=== PATIENT | female | born 1970 | race Hispanic/Latino ===

== ENCOUNTER 2025-01-15 16:47 | Inpatient (IN) | payer OTHER ==
[~2025-01-15] VITALS: Ht 154.9 cm; Wt 118.5 kg
[2025-01-15] MEDS ORDERED: VANCOMYCIN PROTOCOL PER PHARMACY IV SCH (17:30)
[2025-01-15] MEDS: 0.9%NACL 1000ML 1,000 ML IV SCH ×2 (17:32→21:22)
[2025-01-15 17:43] LABS: IMMATURE GRANULOCYTE ABSOLUTE 0.10 K/uL (0-1); NUCLEATED RED BLOOD CELLS 0.0 % (0.0-0.19); PLATELET COUNT (AUTO) 293 K/uL (130-400); RED BLOOD CELL COUNT(AUTO) 4.29 MIL/uL (4.00-5.50); RED CELL DISTRIBUTION WIDTH 11.9 % (11.0-15.5); WHITE BLOOD COUNT (AUTO) 10.2 K/uL (4.8-10.8)
[2025-01-15 17:50] LABS: CREATININE 0.9 mg/dL (0.5-1.0); GLOMERULAR FILTR. RATE CALC 77.0 mL/min (>90); GLUCOSE,RANDOM 366.0 mg/dL (70-105); SODIUM SERUM 132.0 mmol/L (136-145); UREA NITROGEN, BLOOD 22.0 mg/dL (7-18)
[2025-01-15 17:54] LABS: APPEARANCE,URINE CLEAR (CLEAR); GLUCOSE, URINE (UA) >=1000 mg/dL (NEGATIVE); LEUKOCYTE ESTERASE ,URINE NEGATIVE Leu/uL (NEGATIVE); NITRATE,URINE NEGATIVE (NEGATIVE); OCCULT BLOOD,URINE NEGATIVE (NEGATIVE)
[2025-01-15 18:00] LABS: ADD UA MICROSCOPIC YES
[2025-01-15 18:05] LABS: SQUAMOUS EPITHELIAL CELL,UR RARE /HPF (0-2); UNCLASSIFIED CRYSTAL 7 /HPF (None Seen)
[2025-01-15] MEDS: VANCOMYCIN 1.25 GM/250 ML BAG 250 ML IV SCH (18:21)
--- NOTE | 2025-01-15 19:04 | HMCIMG ---
EXAM: Chest radiograph 1 view HISTORY: Sepsis COMPARISON: None FINDINGS: No pulmonary consolidations. No pleural effusion or pneumothorax. Normal cardiomediastinal silhouette and pulmonary vasculature. No suspicious osseous lesions. IMPRESSION: No acute cardiopulmonary disease. /[place]
--- NOTE | 2025-01-15 20:57 | HP ---
[facility] HISTORY AND PHYSICAL Date of Service: Jan 15, 2025 Time of Service: 20:56 PCP: Familia Dai HISTORY OF PRESENT ILLNESS: This is a 54-year-old female with past medical history of diabetes, hypertension, hyperlipidemia and morbid obesity who presents to the ER for complaints of left lower extremity cellulitis which started over a month the patient is taking Bactrim x 12 days but no improvement so patient is being referred to the ED for evaluation.Patient states her left leg just get swollen, inflamed and painful and has 2 blisters that are still intact.Patient denies trauma,insect bites and no fall injury.Patient reports she was seen by her PCP and was advised to come for a possible IV antibiotic.Patient reports 4/10 pain level on the site.Patient reports having fever and chills today but did not check temperature. Latest vital signs temperature 99.7, heart rate 116, blood pressure 144/63 saturation 95% on room air. WBC 10, neutrophils 87, hemoglobin 13, hematocrit 41, platelet count 293. Sodium 132, chloride 98, BUN 22, glucose 366 lactic acid 2.2-1.4 troponin 27 BNP 10. Urinalysis remarkable for glucose more than 1000, ketones five, urine RBC 6-10, urine WBC 2-5. Chest x-ray result is unremarkable. Venous Doppler of the left lower extremity result revealed no DVT . While in the ER patient received 1 L NS bolus, vancomycin IV and cefepime IV. We will admit patient for further medical management. REVIEW OF SYSTEMS CONSTITUTIONAL: Denies fevers, chills, or night sweats. No unintentional weight loss reported. NEUROLOGICAL: Denies headache, amaurosis fugax, motor weakness, sensory deficit, vertigo/spinning sensation, gait abnormalities, or tremors. ENT: No hearing loss, otalgia, otorrhea, rhinitis, rhinorrhea, hoarseness, or sore throat. CARDIOVASCULAR: Denies any exertional angina, dyspnea on exertion, orthopnea, paroxysmal nocturnal dyspnea, palpitations, life-threatening arrhythmias, c laudication. PULMONARY: Denies any shortness of breath, cough, phlegm/sputum, hemoptysis, pleuritic chest pain. SLEEP: Denies morning headaches, daytime somnolence or napping. Denies difficulty falling asleep, staying asleep, waking from sleep. Denies knowledge of snoring. GASTROINTESTINAL: Morbidly obese Denies any type of dysphagia to either liquids or solids. Denies nausea, vomiting, pyrosis, early satiety, abdominal pain, diarrhea, constipation, or changes in stool consistency or caliber. Denies coffee-ground emesis, hematemesis, hematochezia, or melanotic stools. GENITOURINARY: Denies frequency, urgency, nocturia, hematuria or incontinence (Storage/Irritative symptoms.) Low urinary stream, straining to void, urinary intermittency or hesitancy, splitting of the voiding stream, terminal dribbling. ENDOCRINOLOGIC: Denies polyuria, polydipsia, polyphagia or heat/cold in tolerances. HEMATOLOGIC: Denies thrombophilia/previous clots, or coagulopathy/bleeding disorders. ONCOLOGIC: Denies personal history of malignancy. DERMATOLOGIC: Denies rashes or pruritus. PSYCHIATRIC: Denies any suicidal or homicidal ideation. Denies hallucinations. PAST MEDICAL HISTORY: [Diabetes, hypertension, hyperlipidemia and morbid obesity ] PAST SURGICAL HISTORY: [ Patient denies ] PAST SOCIAL HISTORY: [ Patient denies alcohol tobacco and recreational drug use ] FAMILY HISTORY: [ Noncontributory ] Coded Allergies: No Known Allergies (Unverified Allergy, Unknown, 01/15/25) PHYSICAL EXAM GENERAL APPEARANCE: The patient is awake, alert, and oriented, in no acute cardiopulmonary distress. NEUROLOGICAL: Cranial nerves II-XII grossly intact. Motor is 5/5 in bilateral upper and lower extremities proximal to distal. No sensory deficits. HEENT: Face is symmetric. Pupils are equal and reactive. Extraocular movements are intact. NECK: Supple. No JVD. No thyromegaly. No submental, submandibular, pre- /postauricular, occipital or supraclavicular lymphadenopathy. CHEST: Normal chest expansion. No Telemetry. LUNGS: Absence of any rales, rhonchi or any wheezing. CARDIOVASCULAR: Regular. S1 and S2 normal. No appreciable rubs, murmurs or gallops. ABDOMEN: Soft, nontender, and nondistended. There is no rebound, voluntary guarding, or rigidity. : Deferred. No [place]. EXTREMITIES: Left leg swollen, red and tender to touch SKIN: To blisters intact to left lower leg Vital Sign (Last 24 Hours) 01/15/25 18:44 Temp 98.1 Pulse 106 Resp 16 B/P (MAP) 149/61 Pulse Ox 98 O2 Delivery Room Air* O2 Flow Rate 0 FiO2 21 LABS: Laboratory: Test 01/15/25 17:04 01/15/25 14:56 Range/Units Urine Color LIGHT-YELLOW YELLOW Urine Appearance CLEAR CLEAR Urine pH 5.5 5.0-8.0 Urine Specific [place] 1.025 1.001-1.031 Urine Protein NEGATIVE NEGATIVE mg/dL Urine Glucose (UA) >=1000 H NEGATIVE mg/dL Urine Ketones 5 H NEGATIVE mg/dL Urine Occult Blood NEGATIVE NEGATIVE Urine Nitrate NEGATIVE NEGATIVE Urine Bilirubin NEGATIVE NEGATIVE mg/dL Urine Urobilinogen 0.2 0.2-1.0 mg/dL Urine Leukocyte Esterase NEGATIVE NEGATIVE Elizabeth/uL Urine RBC 6-10 H 0-1 /HPF Urine WBC 2-5 H 0-1 /HPF Urine Squamous Epithelial Cells RARE 0-2 /HPF Urine Other Crystals (Auto) 7 None Seen /HPF Urine Bacteria None None Seen /HPF White Blood Count 10.2 4.8-10.8 K/uL Red Blood Count 4.29 4.00-5.50 MIL/uL Hemoglobin 13.9 12.0-16.0 g/dL Hematocrit 41.2 36-48 % Mean Corpuscular Volume 96.0 79-99 fL Mean Corpuscular Hemoglobin 32.4 27.0-33.0 pg Mean Corpuscular Hemoglobin Concent 33.7 32.0-36.0 g/dL Red Cell Distribution Width 11.9 11.0-15.5 % Platelet Count 293 130-400 K/uL Mean Platelet Volume 11.5 H 7.5-10.5 fL Immature Granulocyte % (Auto) 1.0 0-1 % Neutrophils (%) (Auto) 87.6 H 40.0-77.0 % Lymphocytes (%) (Auto) 7.7 L 21.0-51.0 % Monocytes (%) (Auto) 3.3 3.0-13.0 % Eosinophils (%) (Auto) 0.1 0.0-8.0 % Basophils (%) (Auto) 0.3 0.0-5.0 % Neutrophils # (Auto) 8.9 H 1.8-7.7 K/uL Lymphocytes # (Auto) 0.8 L 1.0-4.8 K/uL Monocytes # (Auto) 0.3 0.1-1.0 K/uL Eosinophils # (Auto) 0.01 0.00-0.70 K/uL Basophils # (Auto) 0.03 0.00-0.20 K/uL Absolute Immature Granulocyte (auto 0.10 0-1 K/uL Nucleated Red Blood Cells 0.0 0.0-0.19 % White Cell Morphology Comment See comments Sodium Level 132 L 136-145 mmol/L Potassium Level 4.8 3.5-5.1 mmol/L Chloride Level 98 L 101-111 mmol/L Carbon Dioxide Level 22 21-32 mmol/L Blood Urea Nitrogen 22 H 7-18 mg/dL Creatinine 0.9 0.5-1.0 mg/dL Glomerular Filtration Rate Calc 77 >90 mL/min Random Glucose 366 H 70-105 mg/dL Lactic Acid Level 2.2 0.8-2.5 mmol/L Total Calcium 8.8 8.5-10.1 mg/dL Troponin I High Sensitivity 27 4-50 ng/L B-Type Natriuretic Peptide 10 0-100 pg/mL Current Medications Medications (Trade) Dose Ordered Sig/Chadd Route PRN Reason Start Time Stop Time Status Last Admin Dose Admin Cefepime HCl (MAXipime 1 GM vial) 1 gm Q12H IVPB 01/15/25 17:30 01/25/25 17:29 01/15/25 17:32 1 GM Sodium Chloride 1,000 ml @ 0 mls/hr ONCE IV 01/15/25 17:30 01/16/25 17:29 01/15/25 17:32 999 MLS/HR Vancomycin HCl 250 ml @ 125 mls/hr ONCE IV 01/15/25 18:00 01/15/25 22:00 01/15/25 18:21 125 MLS/HR Vancomycin HCl 250 ml @ 125 mls/hr Q8H6 IV 01/15/25 23:30 01/25/25 23:29 Vancomycin HCl (Vancomycin Protocol) 1 each AD IV 01/15/25 17:30 01/29/25 17:29 DIAGNOSTICS / RADIOLOGY: [ ] ASSESSMENT: Left lower extremity cellulitis POA Morbid obesity POA Hypertension POA Hyperlipidemia POA Uncontrolled diabetes POA Hyponatremia due to hyperglycemia POA PLAN: We will admit patient in medical surgical We will start on consistent carb diet We will start NS @ 75 ml / hr x2 bags and re evaluate We will continue vancomycin and cefepime IV for broad-spectrum coverage We will start famotidine 20 mg p.o. b.i.d. for GI prophylaxis We will replace electrolytes as needed per protocol We will start on insulin sliding Q4H with hypoglycemia protocol We will add prn medication for fever,pain,cough , nausea and vomiting We will reconcile home meds once medlist available We will recheck BMP and serum ketones and follow-up result We will request labs in am Further orders to follow depending on above results Case discussed with attending physician and came up with above treatment and plan of care. ADVANCED CARE PLANNING 1. Which of the following were discussed? Hospice Care - No Therapeutic options - Yes Advance Directives - No Other discussions - 2. Discussed with who? Patient 3. Voluntary nature of this service was explained to the patient? Yes 4. Amount of time spent - _22 min 5. Reviewed by Physician? (if this service was performed by NPP) Yes Patient seen and examined by me. Agree with note by TECHNICAL SPECIALIST CYTOLOGY SEE ADDITIONAL ORDERS PER CHART DISCUSSED WITH NURSING STAFF KP JEFFERSON CUSTOMER ENERGY SPECIALIST Jan 15, 2025 20:56
[2025-01-15] MEDS ORDERED: PoTASSium chl 10% ELIXIR 20MEQ 20 MEQ/15 ML UDCUP PO PRN (21:00)
[2025-01-15] MEDS ORDERED: MAGNESIUM 2GM PREMIX 50ML 50 ML IV PRN (21:00)
[2025-01-15] MEDS ORDERED: VANCOMYCIN 1G/250ML KIT 250 ML IV SCH (21:00)
[2025-01-15] MEDS ORDERED: PoTASSium chloRIDE 20MEQ ER 20 MEQ ERTAB PO PRN (21:00)
[2025-01-15] MEDS ORDERED: DEXTROSE 50%-WATER 50 ML DISP.SYRIN IV PRN (21:00)
[2025-01-15] MEDS ORDERED: GLUCAGON 1MG KIT 1 MG ML IM PRN (21:00)
--- NOTE | 2025-01-15 21:30 | ERN ---
General Chief Complaint: Cellulitis Stated Complaint: LEFT LOWER EXTREMITY CELLULITIS Time Seen by MD: 16:55 Time Seen by Midlevel: 16:55 Source: patient History of Present Illness Initial Comments 54-year-old female presenting to the ER for left lower extremity cellulitis. Patient states this started a proximally one month ago she was started on Bactrim. Per day her redness worsened she was seen by her primary care doctor who referred her to the ER for further evaluation. Today she reports developing fever and chills. Allergies: Coded Allergies: No Known Allergies (Unverified Allergy, Unknown, 01/15/25) Past Medical History Past Medical History: Diabetes-Type II, High Cholesterol, Heart Disease, Hypertension Past Surgical History: None ROS Dictation CONSTITUTIONAL: Negative except for HPI HEAD/FACE: Negative except for HPI EENT: Negative except for HPI RESPIRATORY: Negative except for HPI GASTROINTESTINAL/ABDOMINAL: Negative except for HPI GENITOURINARY: Negative except for HPI MUSCULOSKELETAL: Negative except for HPI INTEGUMENTARY: Negative except for HPI NEUROLOGICAL/PSYCH: Negative except for HPI HEMATOLOGIC/LYMPHATIC: Negative except for HPI All Systems Negative, Except as noted above. 13 point review of systems assessed and all negative except for above. Physical Exam Physical Exam Dictation Vital Signs reviewed General Appearance: Alert, oriented x 3, no acute distress, well developed, nourished. Head and Face: non-traumatic. Eyes: PERRL, pink conjunctivas, eyelid no trauma, anterior chamber with arcus senilis. Ears: Pinnas intact and no signs of trauma or erythema ear canals clear and no discharge TM no erythema Nose: No discharge, no bleeding. Oropharynx: Mouth normal, tongue pink, pharynx clear,no erythema, tonsils no exudates, no abscesses noted, mucous membrane moist Neck: Supple, non-tender, no thyromegaly, no masses, no JVD, no bruits Breast:Deferred Chest:No tenderness, no crepitus, no paradoxical movement, no retractions Lungs:Clear, well-ventilated, symmetric, no rales, no wheezing, no rhonchi, no stridor, good breath sounds bilaterally Heart: Regular rate, regular rhythm, no murmur, no gallops Vascular: no peripheral edema, Abdomen: Soft, positive bowel sounds, nondistended, no guarding, nontender, no rebound, no masses no hepatomegaly, no splenomegaly, no Landrum's sign, no hernias. Rectal: Deferred Genital: Deferred Neurological: Normal speech, motor function intact, sensory function intact Musculoskeletal: Neck nontender, full range of motion, back nontender, full range of motion, Extremities: nontender, full range of motion Skin: Erythema to the left lower extremity Lymphatic: Deferred Results Laboratory and Microbiology Lab and Micro Result Laboratory Tests Test 01/15/25 14:56 01/15/25 17:04 01/15/25 20:55 White Blood Count 10.2 K/uL (4.8-10.8) Red Blood Count 4.29 MIL/uL (4.00-5.50) Hemoglobin 13.9 g/dL (12.0-16.0) Hematocrit 41.2 % (36-48) Mean Corpuscular Volume 96.0 fL (79-99) Mean Corpuscular Hemoglobin 32.4 pg (27.0-33.0) Mean Corpuscular Hemoglobin Concent 33.7 g/dL (32.0-36.0) Red Cell Distribution Width 11.9 % (11.0-15.5) Platelet Count 293 K/uL (130-400) Mean Platelet Volume 11.5 fL (7.5-10.5) H Immature Granulocyte % (Auto) 1.0 % (0-1) Neutrophils (%) (Auto) 87.6 % (40.0-77.0) H Lymphocytes (%) (Auto) 7.7 % (21.0-51.0) L Monocytes (%) (Auto) 3.3 % (3.0-13.0) Eosinophils (%) (Auto) 0.1 % (0.0-8.0) Basophils (%) (Auto) 0.3 % (0.0-5.0) Neutrophils # (Auto) 8.9 K/uL (1.8-7.7) H Lymphocytes # (Auto) 0.8 K/uL (1.0-4.8) L Monocytes # (Auto) 0.3 K/uL (0.1-1.0) Eosinophils # (Auto) 0.01 K/uL (0.00-0.70) Basophils # (Auto) 0.03 K/uL (0.00-0.20) Absolute Immature Granulocyte (auto 0.10 K/uL (0-1) Nucleated Red Blood Cells 0.0 % (0.0-0.19) White Cell Morphology Comment See comments Sodium Level 132 mmol/L (136-145) L Potassium Level 4.8 mmol/L (3.5-5.1) Chloride Level 98 mmol/L (101-111) L Carbon Dioxide Level 22 mmol/L (21-32) Blood Urea Nitrogen 22 mg/dL (7-18) H Creatinine 0.9 mg/dL (0.5-1.0) Glomerular Filtration Rate Calc 77 mL/min (>90) Random Glucose 366 mg/dL (70-105) H Lactic Acid Level 2.2 mmol/L (0.8-2.5) 1.4 mmol/L (0.8-2.5) Total Calcium 8.8 mg/dL (8.5-10.1) Troponin I High Sensitivity 27 ng/L (4-50) B-Type Natriuretic Peptide 10 pg/mL (0-100) Urine Color LIGHT-YELLOW (YELLOW) Urine Appearance CLEAR (CLEAR) Urine pH 5.5 (5.0-8.0) Urine Specific [place] 1.025 (1.001-1.031) Urine Protein NEGATIVE mg/dL (NEGATIVE) Urine Glucose (UA) >=1000 mg/dL (NEGATIVE) H Urine Ketones 5 mg/dL (NEGATIVE) H Urine Occult Blood NEGATIVE (NEGATIVE) Urine Nitrate NEGATIVE (NEGATIVE) Urine Bilirubin NEGATIVE mg/dL (NEGATIVE) Urine Urobilinogen 0.2 mg/dL (0.2-1.0) Urine Leukocyte Esterase NEGATIVE Elizabeth/uL Urine RBC 6-10 /HPF (0-1) H Urine WBC 2-5 /HPF (0-1) H Urine Squamous Epithelial Cells RARE /HPF (0-2) Urine Other Crystals (Auto) 7 /HPF (None Seen) Urine Bacteria None /HPF (None Seen) Labs Reviewed?: Yes MDM MDM: Differential diagnosis: Cellulitis, DVT, sepsis Rationale: Tests considered and ordered secondary to shared decision making include: Previous outside records reviewed: Old ER visits. Risk of complication and/or morbidity or mortality of patient management: None Medications-Per medication reconciliation Need for hospitalization: Patient does meet criteria for hospitalization. Need for emergency major/minor surgery: No There are no social concerns with this patient. Prescription drug management Prescriptions will include symptomatic care Patient's prior external medical records from other ER visits were reviewed by me as indicated. Prior testing and results from previous visits were reviewed. Prior tests were taken into account with medical decision making and resource utilization, independent historian/historians were used to obtain complete medical history. I independently interpreted the test that were performed, results were reviewed by me and considered findings on radiology if ordered. Medical management and examination interpretation discussions were had by me with other qualified healthcare professionals as indicated for the patient's care. ED Course Orders Procedure Category Date Status Time Cbc With Differential LAB 01/15/25 Complete 17:18 Basic Metabolic Panel LAB 01/15/25 Complete 17:18 Lactic Acid LAB 01/15/25 Complete 17:18 Blood Cult LUIS 01/15/25 Logged 17:18 Troponin I High LAB 01/15/25 Complete Sensitivity 17:18 0.9%Nacl 1000ml (Ns PHA 01/15/25 In Process 1000ml) 17:30 Vancomycin Protocol PHA 01/15/25 In Process (Vancomycin Protocol 17:30 Cefepime Hcl 1 Gm PHA 01/15/25 Complete Vial (Maxipime 1 Gm Vi 17:30 B-Type Natriuretic LAB 01/15/25 Complete Peptide 17:24 Chest 1vw RAD 01/15/25 Resulted 17:24 Urinalysis Profile LAB 01/15/25 Complete 17:24 Vancomycin 1.25 PHA 01/15/25 Complete Gm/250 Ml Bag 18:00 Vancomycin 1.25 PHA 01/15/25 Complete Gm/250 Ml Bag 23:30 Vancomycin Trough LAB 01/16/25 Verified 17:00 Us Venous Doppler US 01/15/25 Taken Unilateral 19:08 Lactic Acid (Removed) LAB 01/15/25 Complete 20:43 Current Medications Medications (Trade) Dose Ordered Sig/Chadd Route PRN Reason Start Time Stop Time Status Last Admin Dose Admin Cefepime HCl (MAXipime 1 GM vial) 1 gm Q12H IVPB 01/15/25 17:30 01/15/25 21:22 DC 01/15/25 17:32 Sodium Chloride 1,000 ml @ 0 mls/hr ONCE IV 01/15/25 17:30 01/16/25 17:29 01/15/25 17:32 Vancomycin HCl 250 ml @ 125 mls/hr ONCE IV 01/15/25 18:00 01/15/25 21:19 DC 01/15/25 18:21 Vancomycin HCl (Vancomycin Protocol) 1 each AD IV 01/15/25 17:30 01/29/25 17:29 Vital Signs Date Time Temp Pulse Resp B/P (MAP) Pulse Ox O2 Delivery O2 Flow Rate FiO2 01/15/25 18:44 98.1 106 16 149/61 98 Room Air* 0 21 01/15/25 17:25 99.7 116 12 144/63 95 Room Air* 0 21 01/15/25 16:49 99.0 114 18 146/71 98 Room Air 0 DX & DISP Disposition: Discharge Departure Impression: Primary Impression: Cellulitis Additional Impression: Failure of outpatient treatment Condition: Stable Referrals: SELF,REFERRAL (PCP) I have reviewed the case, and I agree with, Diagnosis and Plan I performed the substantive portion of the visit. I have reviewed and personally made and approve the management plan that is documented in the note by myself or the MARIA ESTHER. I acknowledge for responsibility for the patient's management plan. DEUCE GARCÍA Jan 15, 2025 21:30
[2025-01-15] MEDS: FAMOTIDINE 20MG TAB PO SCH (21:31)
--- NOTE | 2025-01-15 21:31 | HMCIMG ---
EXAMINATION: Spectral Doppler Ultrasound Examination of the Left Lower Extremity Veins. CLINICAL HISTORY: Swelling. COMPARISON: None provided. TECHNIQUE: Real-time ultrasound scan of the veins of the left lower extremity with color Doppler flow, spectral waveform analysis, and compression. FINDINGS: DEEP VEINS: The common femoral, superficial femoral, and popliteal veins are echolucent and compressible. There is normal color Doppler flow throughout. The visualized calf veins appear patent. SUPERFICIAL VEINS: The greater saphenous vein is patent and compressible. SOFT TISSUES: No popliteal fossa cyst or other abnormalities. IMPRESSION: No deep venous thrombosis is evident in the left lower extremity. No superficial thrombophlebitis in the left lower extremity. /[place]
[2025-01-15 23:27] LABS: CREATININE 0.7 mg/dL (0.5-1.0); GLOMERULAR FILTR. RATE CALC 104.0 mL/min (>90); GLUCOSE,RANDOM 257.0 mg/dL (70-105); SODIUM SERUM 136.0 mmol/L (136-145); UREA NITROGEN, BLOOD 20.0 mg/dL (7-18)
[2025-01-15] MEDS ORDERED: VANCOMYCIN 1.25 GM/250 ML BAG 250 ML IV SCH (23:30)
--- NOTE | 2025-01-15 23:39 | NUR ---
REPORT GIVEN TO BONI RAMOS ALL QUESTIONS ANSWERED AT THIS TIME
[2025-01-15 23:50] VITALS: BP 125/60; PULSE 92; RESP 18; TEMP 97.6
[2025-01-16] VITALS (8 sets, daily range): BP systolic 121–130; BP diastolic 52–100; PULSE 92–104; RESP 18; TEMP 97.8–98.7; O2SAT 95–97
[2025-01-16] MEDS ORDERED: COMPOUND IV REFRIGERATED 1 EACH IVSOLN MISC PRN (02:30)
[2025-01-16] MEDS: VANCOMYCIN 1.25 GM/250 ML BAG 250 ML IV SCH (02:48)
[2025-01-16 03:47] LABS: IMMATURE GRANULOCYTE ABSOLUTE 0.08 K/uL (0-1); NUCLEATED RED BLOOD CELLS 0.0 % (0.0-0.19); PLATELET COUNT (AUTO) 231 K/uL (130-400); RED BLOOD CELL COUNT(AUTO) 3.62 MIL/uL (4.00-5.50); RED CELL DISTRIBUTION WIDTH 11.8 % (11.0-15.5); WHITE BLOOD COUNT (AUTO) 7.7 K/uL (4.8-10.8)
[2025-01-16 03:50] LABS: ERYTHROCYTE SEDIMENTATION RATE 44 MM/HR (0-30)
[2025-01-16 04:06] LABS: ASPARTATE AMINOTRANSFERASE 23.0 U/L (10-37); CREATININE 0.6 mg/dL (0.5-1.0); GLOMERULAR FILTR. RATE CALC 108.0 mL/min (>90); GLUCOSE,RANDOM 216.0 mg/dL (70-105); INR 1.0 (0.85-1.15); SODIUM SERUM 136.0 mmol/L (136-145); TOTAL PROTEIN, SERUM 6.0 g/dL (6.0-8.3); UREA NITROGEN, BLOOD 17.0 mg/dL (7-18)
--- NOTE | 2025-01-16 09:48 | PN ---
[facility] PROGRESS NOTE Date of Service: Jan 16, 2025 Time of Service: 09:[address] Ge SUBJECTIVE: [ 01/15 This is a 54-year-old female with past medical history of diabetes, hypertension, hyperlipidemia and morbid obesity who presents to the ER for c omplaints of left lower extremity cellulitis which started over a month the patient is taking Bactrim x 12 days but no improvement so patient is being referred to the ED for evaluation.Patient states her left leg just get swollen, inflamed and painful and has 2 blisters that are still intact.Patient denies trauma,insect bites and no fall injury.Patient reports she was seen by her PCP and was advised to come for a possible IV antibiotic.Patient reports 4/10 pain level on the site.Patient reports having fever and chills today but did not check temperature. Latest vital signs temperature 99.7, heart rate 116, blood pressure 144/63 saturation 95% on room air. WBC 10, neutrophils 87, hemoglobin 13, hematocrit 41, platelet count 293. Sodium 132, chloride 98, BUN 22, glucose 366 lactic acid 2.2-1.4 troponin 27 BNP 10. Urinalysis remarkable for glucose more than 1000, ketones five, urine RBC 6-10, urine WBC 2-5. Chest x-ray result is unremarkable. Venous Doppler of the left lower extremity result revealed no DVT . While in the ER patient received 1 L NS bolus, vancomycin IV and cefepime IV. We will admit patient for further medical management. 01/16 patient was seen by nurse practitioner and physician during rounding. chest x-ray is negative. Venous Doppler negative for DVT. Blood cultures pending. Infectious Disease is pending to see patient, continues to be on cefepime and vancomycin. Patient will receive 2 g of magnesium for magnesium of 1.5. We will continue to monitor patient in the meantime. A.m. labs] REVIEW OF SYSTEMS CONSTITUTIONAL: Denies fevers, chills, or night sweats. No unintentional weight loss reported. NEUROLOGICAL: Denies headache, amaurosis fugax, motor weakness, sensory deficit, vertigo/spinning sensation, gait abnormalities, or tremors. ENT: No hearing loss, otalgia, otorrhea, rhinitis, rhinorrhea, hoarseness, or sore throat. CARDIOVASCULAR: Denies any exertional angina, dyspnea on exertion, orthopnea, paroxysmal nocturnal dyspnea, palpitations, life-threatening arrhythmias, claudication. PULMONARY: Denies any shortness of breath, cough, phlegm/sputum, hemoptysis, pleuritic chest pain. SLEEP: Denies morning headaches, daytime somnolence or napping. Denies difficulty falling asleep, staying asleep, waking from sleep. Denies knowledge of snoring. GASTROINTESTINAL: Morbidly obese Denies any type of dysphagia to either liquids or solids. Denies nausea, vomiting, pyrosis, early satiety, abdominal pain, diarrhea, constipation, or changes in stool consistency or caliber. Denies coffee-ground emesis, hematemesis, hematochezia, or melanotic stools. GENITOURINARY: Denies frequency, urgency, nocturia, hematuria or incontinence (Storage/Irritative symptoms.) Low urinary stream, straining to void, urinary intermittency or hesitancy, splitting of the voiding stream, terminal dribbling. ENDOCRINOLOGIC: Denies polyuria, polydipsia, polyphagia or heat/cold intolerances. HEMATOLOGIC: Denies thrombophilia/previous clots, or coagulopathy/bleeding disorders. ONCOLOGIC: Denies personal history of malignancy. DERMATOLOGIC: Denies rashes or pruritus. PSYCHIATRIC: Denies any suicidal or homicidal ideation. Denies hallucinations. PHYSICAL EXAM GENERAL APPEARANCE: The patient is awake, alert, and oriented, in no acute cardiopulmonary distress. NEUROLOGICAL: Cranial nerves II-XII grossly intact. Motor is 5/5 in bilateral upper and lower extremities proximal to distal. No sensory deficits. HEENT: Face is symmetric. Pupils are equal and reactive. Extraocular movements are intact. NECK: Supple. No JVD. No thyromegaly. No submental, submandibular, pre- /postauricular, occipital or supraclavicular lymphadenopathy. CHEST: Normal chest expansion. No Telemetry. LUNGS: Absence of any rales, rhonchi or any wheezing. CARDIOVASCULAR: Regular. S1 and S2 normal. No appreciable rubs, murmurs or gallops. ABDOMEN: Soft, nontender, and nondistended. There is no rebound, voluntary guarding, or rigidity. : Deferred. No [place]. EXTREMITIES: Left leg swollen, red and tender to touch SKIN: To blisters intact to left lower leg Vital Signs (last 8hr) Date Time Temp Pulse Resp B/P (MAP) Pulse Ox O2 Delivery O2 Flow Rate FiO2 01/16/25 08:00 98.2 97 18 130/68 96 Room Air 01/16/25 04:00 97.9 94 18 123/75 96 Room Air LABS: Laboratory: Test 01/16/25 05:24 01/16/25 03:32 01/15/25 22:49 01/15/25 20:55 Range/Units Whole Blood Glucose 190 H 70-110 MG/DL White Blood Count 7.7 4.8-10.8 K/uL Red Blood Count 3.62 L 4.00-5.50 MIL/uL Hemoglobin 11.7 L 12.0-16.0 g/dL Hematocrit 34.7 L 36-48 % Mean Corpuscular Volume 95.9 79-99 fL Mean Corpuscular Hemoglobin 32.3 27.0-33.0 pg Mean Corpuscular Hemoglobin Concent 33.7 32.0-36.0 g/dL Red Cell Distribution Width 11.8 11.0-15.5 % Platelet Count 231 130-400 K/uL Mean Platelet Volume 10.6 H 7.5-10.5 fL Immature Granulocyte % (Auto) 1.0 0-1 % Neutrophils (%) (Auto) 69.2 40.0-77.0 % Lymphocytes (%) (Auto) 20.0 L 21.0-51.0 % Monocytes (%) (Auto) 8.2 3.0-13.0 % Eosinophils (%) (Auto) 0.9 0.0-8.0 % Basophils (%) (Auto) 0.7 0.0-5.0 % Neutrophils # (Auto) 5.3 1.8-7.7 K/uL Lymphocytes # (Auto) 1.5 1.0-4.8 K/uL Monocytes # (Auto) 0.6 0.1-1.0 K/uL Eosinophils # (Auto) 0.07 0.00-0.70 K/uL Basophils # (Auto) 0.05 0.00-0.20 K/uL Absolute Immature Granulocyte (auto 0.08 0-1 K/uL Nucleated Red Blood Cells 0.0 0.0-0.19 % Erythrocyte Sedimentation Rate 44 H 0-30 MM/HR Prothrombin Time 10.6 9.6-11.6 SEC Prothromb Time International Ratio 1.00 0.85-1.15 Activated Partial Thromboplast Time 24.5 L 26.3-35.5 SEC Sodium Level 136 136-145 mmol/L Potassium Level 4.3 3.5-5.1 mmol/L Chloride Level 104 101-111 mmol/L Carbon Dioxide Level 25 21-32 mmol/L Blood Urea Nitrogen 17 7-18 mg/dL Creatinine 0.6 0.5-1.0 mg/dL Glomerular Filtration Rate Calc 108 >90 mL/min Random Glucose 216 H 70-105 mg/dL Total Calcium 8.4 L 8.5-10.1 mg/dL Magnesium Level 1.50 L 1.80-2.40 mg/dL Total Bilirubin 0.3 0.2-1.0 mg/dL Aspartate Amino Transf (AST/SGOT) 23 10-37 U/L Alanine Aminotransferase (ALT/SGPT) 46 12-78 U/L Alkaline Phosphatase 99 50-136 U/L Total Protein 6.0 6.0-8.3 g/dL Albumin 2.5 L 3.5-5.0 g/dL Whole Blood Ketones Quantitative 0.3 0.0-0.6 mmol/L Lactic Acid Level 1.4 0.8-2.5 mmol/L Test 01/15/25 17:04 01/15/25 14:56 Range/Units Urine Color LIGHT-YELLOW YELLOW Urine Appearance CLEAR CLEAR Urine pH 5.5 5.0-8.0 Urine Specific [place] 1.025 1.001-1.031 Urine Protein NEGATIVE NEGATIVE mg/dL Urine Glucose (UA) >=1000 H NEGATIVE mg/dL Urine Ketones 5 H NEGATIVE mg/dL Urine Occult Blood NEGATIVE NEGATIVE Urine Nitrate NEGATIVE NEGATIVE Urine Bilirubin NEGATIVE NEGATIVE mg/dL Urine Urobilinogen 0.2 0.2-1.0 mg/dL Urine Leukocyte Esterase NEGATIVE NEGATIVE Elizabeth/uL Urine RBC 6-10 H 0-1 /HPF Urine WBC 2-5 H 0-1 /HPF Urine Squamous Epithelial Cells RARE 0-2 /HPF Urine Other Crystals (Auto) 7 None Seen /HPF Urine Bacteria None None Seen /HPF White Cell Morphology Comment See comments Troponin I High Sensitivity 27 4-50 ng/L B-Type Natriuretic Peptide 10 0-100 pg/mL Current Medications Medications (Trade) Dose Ordered Sig/Chadd Route PRN Reason Start Time Stop Time Status Last Admin Dose Admin Cefepime HCl (MAXipime 1 GM vial) 1 gm Q12H IVPB 01/15/25 17:30 01/15/25 21:22 DC 01/15/25 17:32 1 GM Cefepime HCl (MAXipime 1 GM vial) 1 gm Q12H IVPB 01/16/25 05:00 01/26/25 04:59 01/16/25 05:53 1 GM Dextrose (D50w) 50 ml AD PRN IV HYPOGLYCEMIA PROTOCOL 01/15/25 21:00 02/14/25 20:59 Famotidine (Pepcid 20mg Tab) 20 mg BID PO 01/15/25 21:00 02/14/25 20:59 01/15/25 21:31 20 MG Glucagon (Glucagon 1mg Kit) 1 mg AD PRN IM HYPOGLYCEMIA PROTOCOL 01/15/25 21:00 02/14/25 20:59 Insulin Human Regular (humuLIN R 100 UNIT/ML 3ML) INSULIN SLIDING SCAL... ACHS SQ 01/15/25 21:00 01/15/25 22:34 DC 01/15/25 21:23 4 UNIT Insulin Human Regular (humuLIN R 100 UNIT/ML 3ML) INSULIN SLIDING SCAL... Q4H SQ 01/15/25 23:00 02/14/25 22:59 01/16/25 07:26 2 UNIT Magnesium Sulfate 50 ml @ 0 mls/hr PROTOCOL PRN IV OTHER [SEE ORDER COMMENTS] 01/15/25 21:00 02/14/25 20:59 Potassium Chloride 100 ml @ 100 mls/hr AD PRN IV POTASSIUM PROTOCOL 01/15/25 21:00 02/14/25 20:59 Potassium Chloride (K-Dur/Klor-Con 20meq) 20 meq AD PRN PO POTASSIUM PROTOCOL 01/15/25 21:00 02/14/25 20:59 Potassium Chloride (KCl 10% Elixir 20meq/15ml) 20 meq AD PRN PO POTASSIUM PROTOCOL 01/15/25 21:00 02/14/25 20:59 Sodium Chloride 1,000 ml @ 0 mls/hr ONCE IV 01/15/25 17:30 01/16/25 17:29 01/15/25 17:32 999 MLS/HR Sodium Chloride 1,000 ml @ 75 mls/hr [id number] IV 01/15/25 21:00 02/14/25 20:59 01/15/25 21:22 75 MLS/HR Vancomycin HCl 250 ml @ 125 mls/hr ONCE IV 01/15/25 18:00 01/15/25 21:19 DC 01/15/25 18:21 125 MLS/HR Vancomycin HCl 250 ml @ 125 mls/hr ONCE IV 01/15/25 21:00 01/15/25 21:11 DC Vancomycin HCl 250 ml @ 125 mls/hr Q8H IV 01/16/25 02:00 01/26/25 01:59 01/16/25 02:48 125 MLS/HR Vancomycin HCl 250 ml @ 125 mls/hr Q8H6 IV 01/15/25 23:30 01/15/25 21:10 DC Vancomycin HCl (Vancomycin Protocol) 1 each AD IV 01/15/25 17:30 01/29/25 17:29 DIAGNOSTICS / RADIOLOGY: [ ] ASSESSMENT: Left lower extremity cellulitis POA Morbid obesity POA Hypertension POA Hyperlipidemia POA Uncontrolled diabetes POA Hyponatremia due to hyperglycemia POA PLAN: chest x-ray is negative. Venous Doppler negative for DVT. Blood cultures pending. Infectious Disease is pending to see patient, continues to be on cefepime and vancomycin. Patient will receive 2 g of magnesium for magnesium of 1.5. We will continue to monitor patient in the meantime. A.m. labs continue patient in medical surgical continue on consistent carb diet continue NS @ 75 ml / hr x2 bags and re evaluate continue famotidine 20 mg p.o. b.i.d. for GI prophylaxis We will replace electrolytes as needed per protocol We will start on insulin sliding Q4H with hypoglycemia protocol We will add prn medication for fever,pain,cough , nausea and vomiting We will reconcile home meds once medlist available We will recheck BMP and serum ketones and follow-up result We will request labs in am Further orders to follow depending on above results Case discussed with attending physician and came up with above treatment and plan of care. ATTESTATION BY PHYSICIAN I have seen and examined the patient. I reviewed the documentation, medical decision making, and treatment plan as noted by the mid-level provider above. I agree with the findings and plan of care. Moiz Ge IV, MD, [employer]ICE Jan 16, 2025 09:48
[2025-01-16] MEDS: MAGNESIUM 2GM PREMIX 50ML 50 ML IV SCH (10:40)
[2025-01-17] VITALS (7 sets, daily range): BP systolic 117–157; BP diastolic 56–75; PULSE 60–112; RESP 16–18; TEMP 98.3–99.2; O2SAT 97
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
[2025-01-17 05:20] LABS: IMMATURE GRANULOCYTE ABSOLUTE 0.05 K/uL (0-1); NUCLEATED RED BLOOD CELLS 0.0 % (0.0-0.19); PLATELET COUNT (AUTO) 232 K/uL (130-400); RED BLOOD CELL COUNT(AUTO) 3.68 MIL/uL (4.00-5.50); RED CELL DISTRIBUTION WIDTH 11.9 % (11.0-15.5); WHITE BLOOD COUNT (AUTO) 7.5 K/uL (4.8-10.8)
[2025-01-17 05:50] LABS: ASPARTATE AMINOTRANSFERASE 38.0 U/L (10-37); CREATININE 0.6 mg/dL (0.5-1.0); GLOMERULAR FILTR. RATE CALC 108.0 mL/min (>90); GLUCOSE,RANDOM 225.0 mg/dL (70-105); SODIUM SERUM 136.0 mmol/L (136-145); TOTAL PROTEIN, SERUM 6.3 g/dL (6.0-8.3); UREA NITROGEN, BLOOD 13.0 mg/dL (7-18); VANCOMYCIN TROUGH 7.0 UG/ML (10.0-20.0)
[2025-01-17] MEDS ORDERED: METF-446 PO (07:47)
[2025-01-17] MEDS ORDERED: CARV3.12 PO (07:50)
[2025-01-17] MEDS ORDERED: MONT-39 PO (07:50)
[2025-01-17] MEDS ORDERED: LISI10TA24 PO (07:51)
[2025-01-17] MEDS ORDERED: ROSU10TA72 PO (07:52)
[2025-01-17] MEDS: VANCOMYCIN 1G/250ML KIT 250 ML IV SCH (14:45)
--- NOTE | 2025-01-17 15:26 | PN ---
[facility] PROGRESS NOTE Date of Service: Jan 17, 2025 Time of Service: 15:[address] Ge SUBJECTIVE: [ 01/15 This is a 54-year-old female with past medical history of diabetes, hypertension, hyperlipidemia and morbid obesity who presents to the ER for c omplaints of left lower extremity cellulitis which started over a month the patient is taking Bactrim x 12 days but no improvement so patient is being referred to the ED for evaluation.Patient states her left leg just get swollen, inflamed and painful and has 2 blisters that are still intact.Patient denies trauma,insect bites and no fall injury.Patient reports she was seen by her PCP and was advised to come for a possible IV antibiotic.Patient reports 4/10 pain level on the site.Patient reports having fever and chills today but did not check temperature. Latest vital signs temperature 99.7, heart rate 116, blood pressure 144/63 saturation 95% on room air. WBC 10, neutrophils 87, hemoglobin 13, hematocrit 41, platelet count 293. Sodium 132, chloride 98, BUN 22, glucose 366 lactic acid 2.2-1.4 troponin 27 BNP 10. Urinalysis remarkable for glucose more than 1000, ketones five, urine RBC 6-10, urine WBC 2-5. Chest x-ray result is unremarkable. Venous Doppler of the left lower extremity result revealed no DVT . While in the ER patient received 1 L NS bolus, vancomycin IV and cefepime IV. We will admit patient for further medical management. 01/16 patient was seen by nurse practitioner and physician during rounding. chest x-ray is negative. Venous Doppler negative for DVT. Blood cultures pending. Infectious Disease is pending to see patient, continues to be on cefepime and vancomycin. Patient will receive 2 g of magnesium for magnesium of 1.5. We will continue to monitor patient in the meantime. A.m. labs 01/17 patient was seen by nurse practitioner and physician during rounding in room 419. Patient is pending blood culture and wound culture. As per ID he was able to pop the blister of the left ankle and culture was sent to the lab. Venous Doppler negative. Chest x-ray negative. Continue cefepime and vancomycin. UA negative. We will continue to monitor patient in the meantime. A.m. labs.] REVIEW OF SYSTEMS CONSTITUTIONAL: Denies fevers, chills, or night sweats. No unintentional weight loss reported. NEUROLOGICAL: Denies headache, amaurosis fugax, motor weakness, sensory deficit, vertigo/spinning sensation, gait abnormalities, or tremors. ENT: No hearing loss, otalgia, otorrhea, rhinitis, rhinorrhea, hoarseness, or sore throat. CARDIOVASCULAR: Denies any exertional angina, dyspnea on exertion, orthopnea, paroxysmal nocturnal dyspnea, palpitations, life-threatening arrhythmias, cl audication. PULMONARY: Denies any shortness of breath, cough, phlegm/sputum, hemoptysis, pleuritic chest pain. SLEEP: Denies morning headaches, daytime somnolence or napping. Denies difficulty falling asleep, staying asleep, waking from sleep. Denies knowledge of snoring. GASTROINTESTINAL: Morbidly obese Denies any type of dysphagia to either liquids or solids. Denies nausea, vomiting, pyrosis, early satiety, abdominal pain, diarrhea, constipation, or changes in stool consistency or caliber. Denies coffee-ground emesis, hematemesis, hematochezia, or melanotic stools. GENITOURINARY: Denies frequency, urgency, nocturia, hematuria or incontinence (Storage/Irritative symptoms.) Low urinary stream, straining to void, urinary intermittency or hesitancy, splitting of the voiding stream, terminal dribbling. ENDOCRINOLOGIC: Denies polyuria, polydipsia, polyphagia or heat/cold int olerances. HEMATOLOGIC: Denies thrombophilia/previous clots, or coagulopathy/bleeding disorders. ONCOLOGIC: Denies personal history of malignancy. DERMATOLOGIC: Denies rashes or pruritus. PSYCHIATRIC: Denies any suicidal or homicidal ideation. Denies hallucinations. PHYSICAL EXAM GENERAL APPEARANCE: The patient is awake, alert, and oriented, in no acute cardiopulmonary distress. NEUROLOGICAL: Cranial nerves II-XII grossly intact. Motor is 5/5 in bilateral upper and lower extremities proximal to distal. No sensory deficits. HEENT: Face is symmetric. Pupils are equal and reactive. Extraocular movements are intact. NECK: Supple. No JVD. No thyromegaly. No submental, submandibular, pre- /postauricular, occipital or supraclavicular lymphadenopathy. CHEST: Normal chest expansion. No Telemetry. LUNGS: Absence of any rales, rhonchi or any wheezing. CARDIOVASCULAR: Regular. S1 and S2 normal. No appreciable rubs, murmurs or gallops. ABDOMEN: Soft, nontender, and nondistended. There is no rebound, voluntary guarding, or rigidity. : Deferred. No [place]. EXTREMITIES: Left leg swollen, red and tender to touch SKIN: To blisters intact to left lower leg Vital Signs (last 8hr) Date Time Temp Pulse Resp B/P (MAP) Pulse Ox O2 Delivery O2 Flow Rate FiO2 01/17/25 11:03 98.2 105 16 148/61 95 Room Air 01/17/25 08:03 97 Room Air* 0 01/17/25 07:44 98.8 60 16 130/64 97 Room Air LABS: Laboratory: Test 01/17/25 10:22 01/17/25 05:10 01/16/25 03:32 01/15/25 22:49 Range/Units Whole Blood Glucose 272 H 70-110 MG/DL Bedside Glucose Comment Notified Nurse White Blood Count 7.5 4.8-10.8 K/uL Red Blood Count 3.68 L 4.00-5.50 MIL/uL Hemoglobin 12.0 12.0-16.0 g/dL Hematocrit 35.7 L 36-48 % Mean Corpuscular Volume 97.0 79-99 fL Mean Corpuscular Hemoglobin 32.6 27.0-33.0 pg Mean Corpuscular Hemoglobin Concent 33.6 32.0-36.0 g/dL Red Cell Distribution Width 11.9 11.0-15.5 % Platelet Count 232 130-400 K/uL Mean Platelet Volume 10.4 7.5-10.5 fL Immature Granulocyte % (Auto) 0.7 0-1 % Neutrophils (%) (Auto) 69.0 40.0-77.0 % Lymphocytes (%) (Auto) 18.4 L 21.0-51.0 % Monocytes (%) (Auto) 9.4 3.0-13.0 % Eosinophils (%) (Auto) 2.0 0.0-8.0 % Basophils (%) (Auto) 0.5 0.0-5.0 % Neutrophils # (Auto) 5.2 1.8-7.7 K/uL Lymphocytes # (Auto) 1.4 1.0-4.8 K/uL Monocytes # (Auto) 0.7 0.1-1.0 K/uL Eosinophils # (Auto) 0.15 0.00-0.70 K/uL Basophils # (Auto) 0.04 0.00-0.20 K/uL Absolute Immature Granulocyte (auto 0.05 0-1 K/uL Nucleated Red Blood Cells 0.0 0.0-0.19 % Sodium Level 136 136-145 mmol/L Potassium Level 4.5 3.5-5.1 mmol/L Chloride Level 101 101-111 mmol/L Carbon Dioxide Level 28 21-32 mmol/L Blood Urea Nitrogen 13 7-18 mg/dL Creatinine 0.6 0.5-1.0 mg/dL Glomerular Filtration Rate Calc 108 >90 mL/min Random Glucose 225 H 70-105 mg/dL Total Calcium 8.3 L 8.5-10.1 mg/dL Magnesium Level 1.90 1.80-2.40 mg/dL Total Bilirubin 0.4 0.2-1.0 mg/dL Aspartate Amino Transf (AST/SGOT) 38 H 10-37 U/L Alanine Aminotransferase (ALT/SGPT) 50 12-78 U/L Alkaline Phosphatase 82 50-136 U/L Total Protein 6.3 6.0-8.3 g/dL Albumin 2.6 L 3.5-5.0 g/dL Vancomycin Level Trough 7.0 #L 10.0-20.0 UG/ML Erythrocyte Sedimentation Rate 44 H 0-30 MM/HR Prothrombin Time 10.6 9.6-11.6 SEC Prothromb Time International Ratio 1.00 0.85-1.15 Activated Partial Thromboplast Time 24.5 L 26.3-35.5 SEC Whole Blood Ketones Quantitative 0.3 0.0-0.6 mmol/L Test 01/15/25 20:55 01/15/25 17:04 Range/Units Lactic Acid Level 1.4 0.8-2.5 mmol/L Urine Color LIGHT-YELLOW YELLOW Urine Appearance CLEAR CLEAR Urine pH 5.5 5.0-8.0 Urine Specific Sophia 1.025 1.001-1.031 Urine Protein NEGATIVE NEGATIVE mg/dL Urine Glucose (UA) >=1000 H NEGATIVE mg/dL Urine Ketones 5 H NEGATIVE mg/dL Urine Occult Blood NEGATIVE NEGATIVE Urine Nitrate NEGATIVE NEGATIVE Urine Bilirubin NEGATIVE NEGATIVE mg/dL Urine Urobilinogen 0.2 0.2-1.0 mg/dL Urine Leukocyte Esterase NEGATIVE NEGATIVE Elizabeth/uL Urine RBC 6-10 H 0-1 /HPF Urine WBC 2-5 H 0-1 /HPF Urine Squamous Epithelial Cells RARE 0-2 /HPF Urine Other Crystals (Auto) 7 None Seen /HPF Urine Bacteria None None Seen /HPF Current Medications Medications (Trade) Dose Ordered Sig/Chadd Route PRN Reason Start Time Stop Time Status Last Admin Dose Admin Carvedilol (Coreg 3.125MG) 3.125 mg BID PO 01/17/25 21:00 02/16/25 20:59 UNV Cefepime HCl (MAXipime 1 GM vial) 1 gm Q12H IVPB 01/15/25 17:30 01/15/25 21:22 DC 01/15/25 17:32 1 GM Cefepime HCl (MAXipime 1 GM vial) 1 gm Q12H IVPB 01/16/25 05:00 01/26/25 04:59 01/17/25 05:17 1 GM Dextrose (D50w) 50 ml AD PRN IV HYPOGLYCEMIA PROTOCOL 01/15/25 21:00 02/14/25 20:59 Famotidine (Pepcid 20mg Tab) 20 mg BID PO 01/15/25 21:00 02/14/25 20:59 01/17/25 08:53 20 MG Glucagon (Glucagon 1mg Kit) 1 mg AD PRN IM HYPOGLYCEMIA PROTOCOL 01/15/25 21:00 02/14/25 20:59 Insulin Human Regular (humuLIN R 100 UNIT/ML 3ML) INSULIN SLIDING SCAL... ACHS SQ 01/15/25 21:00 01/15/25 22:34 DC 01/15/25 21:23 4 UNIT Insulin Human Regular (humuLIN R 100 UNIT/ML 3ML) INSULIN SLIDING SCAL... ACHS SQ 01/16/25 18:30 02/14/25 22:59 01/17/25 11:51 5 UNIT Insulin Human Regular (humuLIN R 100 UNIT/ML 3ML) INSULIN SLIDING SCAL... Q4H SQ 01/15/25 23:00 01/16/25 18:30 DC 01/16/25 16:56 4 UNIT Lisinopril (Prinivil 10mg) 10 mg DAILY PO 01/18/25 09:00 02/17/25 08:59 UNV Magnesium Sulfate 50 ml @ 0 mls/hr PROTOCOL IV 01/16/25 10:00 02/15/25 09:59 01/16/25 10:40 0 MLS/HR Magnesium Sulfate 50 ml @ 0 mls/hr PROTOCOL PRN IV OTHER [SEE ORDER COMMENTS] 01/15/25 21:00 01/16/25 09:40 DC Miscellaneous Medication (Rosuvastatin Calcium ) 10 mg HS PO 01/17/25 21:00 02/16/25 20:59 UNV Montelukast Sodium (SinguLAIR) 10 mg DAILYDINNER PO 01/17/25 17:00 02/16/25 16:59 UNV Potassium Chloride 100 ml @ 100 mls/hr AD PRN IV POTASSIUM PROTOCOL 01/15/25 21:00 02/14/25 20:59 Potassium Chloride (K-Dur/Klor-Con 20meq) 20 meq AD PRN PO POTASSIUM PROTOCOL 01/15/25 21:00 02/14/25 20:59 Potassium Chloride (KCl 10% Elixir 20meq/15ml) 20 meq AD PRN PO POTASSIUM PROTOCOL 01/15/25 21:00 02/14/25 20:59 Sodium Chloride 1,000 ml @ 0 mls/hr ONCE IV 01/15/25 17:30 01/16/25 13:12 DC 01/15/25 17:32 999 MLS/HR Sodium Chloride 1,000 ml @ 75 mls/hr [id number] IV 01/15/25 21:00 02/14/25 20:59 01/17/25 11:52 75 MLS/HR Tramadol HCl (UltRAM) 25 mg Q6H PRN PO MODERATE PAIN (4-6) 01/16/25 14:00 01/21/25 13:59 01/17/25 08:54 25 MG Tramadol HCl (UltRAM) 25 mg Q6H6 PRN PO MODERATE PAIN (4-6) 01/16/25 14:00 01/16/25 13:50 DC Vancomycin HCl 250 ml @ 125 mls/hr ONCE IV 01/15/25 18:00 01/15/25 21:19 DC 01/15/25 18:21 125 MLS/HR Vancomycin HCl 250 ml @ 125 mls/hr ONCE IV 01/15/25 21:00 01/15/25 21:11 DC Vancomycin HCl 250 ml @ 125 mls/hr Q8H IV 01/16/25 02:00 01/16/25 17:46 DC 01/16/25 10:39 125 MLS/HR Vancomycin HCl 250 ml @ 125 mls/hr Q8H IV 01/17/25 06:00 01/27/25 05:59 01/17/25 14:45 125 MLS/HR Vancomycin HCl 250 ml @ 125 mls/hr Q8H6 IV 01/15/25 23:30 01/15/25 21:10 DC Vancomycin HCl (Vancomycin Protocol) 1 each AD IV 01/15/25 17:30 01/29/25 17:29 DIAGNOSTICS / RADIOLOGY: [ ] ASSESSMENT: Left lower extremity cellulitis POA Morbid obesity POA Hypertension POA Hyperlipidemia POA Uncontrolled diabetes POA Hyponatremia due to hyperglycemia POA PLAN: Patient is pending blood culture and wound culture. As per ID he was able to pop the blister of the left ankle and culture was sent to the lab. Venous Doppler negative. Chest x-ray negative. Continue cefepime and vancomycin. UA negative. We will continue to monitor patient in the meantime. A.m. labs. continue patient in medical surgical continue on consistent carb diet continue NS @ 75 ml / hr x2 bags and re evaluate continue famotidine 20 mg p.o. b.i.d. for GI prophylaxis We will replace electrolytes as needed per protocol We will start on insulin sliding Q4H with hypoglycemia protocol We will add prn medication for fever,pain,cough , nausea and vomiting Home medication reconciled by [employer]RI[employer] TECHNICIAN 01/17/2025 Further orders to follow depending on above results Case discussed with attending physician and came up with above treatment and plan of care. ATTESTATION BY PHYSICIAN I have seen and examined the patient. I reviewed the documentation, medical decision making, and treatment plan as noted by the mid-level provider above. I agree with the findings and plan of care. Moiz Ge IV, MD, [facility] [employer] Jan 17, 2025 15:26
[2025-01-18] VITALS (7 sets, daily range): BP systolic 120–146; BP diastolic 57–78; PULSE 75–114; RESP 18–21; TEMP 98.2–99.2; O2SAT 93
--- NOTE | 2025-01-18 02:00 | PN ---
INFECTIOUS DISEASE FOLLOWUP NOTE DATE OF SERVICE: 01/17/2025 SUBJECTIVE: The patient is seen on examination at bedside today. No fever, no chills, no nausea, vomiting. Pain and swelling of the left leg is improving. Alert and oriented x3. No depression. No suicidal ideation. . No dysuria. No hematuria. No bleeding tendencies. PHYSICAL EXAMINATION: GENERAL: Elderly female ____. VITAL SIGNS: Temperature 98.5. EYES: No icterus. Pupils equal and reactive. HENT: No oral thrush seen. Moist oral mucosa. NECK: Supple. No JVD or thyromegaly. LUNGS: Good air entry. No rales. No rhonchi. CARDIOVASCULAR: S1 and S2, regular. No murmur heard. ABDOMEN: Obese, soft, nontender. Bowel sound is present. CENTRAL NERVOUS SYSTEM: Awake, alert, oriented x 3. No focal deficits. SKIN: No rashes, no itchiness. LYMPHATIC: There is left groin lymphadenopathy. BACK: No deformity. No pressure ulcer. MUSCULOSKELETAL: Cellulitis of left leg. There is abscess involving the lateral aspect of the left ankle with purulent drainage. LABORATORY DATA: Wound culture pending. ASSESSMENT: A 54-year-old female with multiple problems: * Left lower extremity cellulitis. * Left ankle abscess. * Hypertension. * Obesity. * Diabetes mellitus. PLAN: * Continue cefepime. * Continue vancomycin. * Continue wound care. * Follow-up cultures. * Continue ____. * Continue DVT prophylaxis. * Continue nutritional support. TID: [id number] RECEIPT: [id number]
[2025-01-18 03:59] LABS: IMMATURE GRANULOCYTE ABSOLUTE 0.05 K/uL (0-1); NUCLEATED RED BLOOD CELLS 0.0 % (0.0-0.19); PLATELET COUNT (AUTO) 223 K/uL (130-400); RED BLOOD CELL COUNT(AUTO) 3.71 MIL/uL (4.00-5.50); RED CELL DISTRIBUTION WIDTH 11.8 % (11.0-15.5); WHITE BLOOD COUNT (AUTO) 8.6 K/uL (4.8-10.8)
[2025-01-18 04:27] LABS: ASPARTATE AMINOTRANSFERASE 25.0 U/L (10-37); CREATINE KINASE, TOTAL 34.0 U/L (21-232); CREATININE 0.7 mg/dL (0.5-1.0); GLOMERULAR FILTR. RATE CALC 104.0 mL/min (>90); GLUCOSE,RANDOM 266.0 mg/dL (70-105); SODIUM SERUM 136.0 mmol/L (136-145); TOTAL PROTEIN, SERUM 6.4 g/dL (6.0-8.3); UREA NITROGEN, BLOOD 8.0 mg/dL (7-18)
[2025-01-18] MEDS: LISINOPRIL 10 MG TABLET PO SCH (09:41)
--- NOTE | 2025-01-18 12:24 | PN ---
[facility] PROGRESS NOTE Date of Service: Jan 18, 2025 Time of Service: 12:20 Dr. Lujan SUBJECTIVE: [ 01/15 This is a 54-year-old female with past medical history of diabetes, hypertension, hyperlipidemia and morbid obesity who presents to the ER for complaints of left lower extremity cellulitis which started over a month the patient is taking Bactrim x 12 days but no improvement so patient is being referred to the ED for evaluation.Patient states her left leg just get swollen, inflamed and painful and has 2 blisters that are still intact.Patient denies trauma,insect bites and no fall injury.Patient reports she was seen by her PCP and was advised to come for a possible IV antibiotic.Patient reports 4/10 pain level on the site.Patient reports having fever and chills today but did not check temperature. Latest vital signs temperature 99.7, heart rate 116, blood pressure 144/63 saturation 95% on room air. WBC 10, neutrophils 87, hemoglobin 13, hematocrit 41, platelet count 293. Sodium 132, chloride 98, BUN 22, glucose 366 lactic acid 2.2-1.4 troponin 27 BNP 10. Urinalysis remarkable for glucose more than 1000, ketones five, urine RBC 6-10, urine WBC 2-5. Chest x-ray result is unremarkable. Venous Doppler of the left lower extremity result revealed no DVT . While in the ER patient received 1 L NS bolus, vancomycin IV and cefepime IV. We will admit patient for further medical management. 01/16 patient was seen by nurse practitioner and physician during rounding. chest x-ray is negative. Venous Doppler negative for DVT. Blood cultures pending. Infectious Disease is pending to see patient, continues to be on cefepime and vancomycin. Patient will receive 2 g of magnesium for magnesium of 1.5. We will continue to monitor patient in the meantime. A.m. labs 01/17 patient was seen by nurse practitioner and physician during rounding in room 419. Patient is pending blood culture and wound culture. As per ID he was able to pop the blister of the left ankle and culture was sent to the lab. Venous Doppler negative. Chest x-ray negative. Continue cefepime and vancomycin. UA negative. We will continue to monitor patient in the meantime. A.m. labs. 01/18 patient was seen by COMMUNITY DEVELOPMENT SPECIALIST and physician. Final blood in ankle culture still pending. Continue antibiotics vancomycin and cefepime as prescribed by ID. H&H stable. WBC 8.6. Patient will receive 2 g of magnesium for magnesium 1.6. Venous Doppler negative for DVT no superficial thrombophlebitis in the left lower extremity. We will continue to monitor patient in the meantime. A.m. labs] REVIEW OF SYSTEMS CONSTITUTIONAL: Denies fevers, chills, or night sweats. No unintentional weight loss reported. NEUROLOGICAL: Denies headache, amaurosis fugax, motor weakness, sensory deficit, vertigo/spinning sensation, gait abnormalities, or tremors. ENT: No hearing loss, otalgia, otorrhea, rhinitis, rhinorrhea, hoarseness, or sore throat. CARDIOVASCULAR: Denies any exertional angina, dyspnea on exertion, orthopnea, paroxysmal nocturnal dyspnea, palpitations, life-threatening arrhythmias, c laudication. PULMONARY: Denies any shortness of breath, cough, phlegm/sputum, hemoptysis, pleuritic chest pain. SLEEP: Denies morning headaches, daytime somnolence or napping. Denies difficulty falling asleep, staying asleep, waking from sleep. Denies knowledge of snoring. GASTROINTESTINAL: Morbidly obese Denies any type of dysphagia to either liquids or solids. Denies nausea, vomiting, pyrosis, early satiety, abdominal pain, diarrhea, constipation, or changes in stool consistency or caliber. Denies coffee-ground emesis, hematemesis, hematochezia, or melanotic stools. GENITOURINARY: Denies frequency, urgency, nocturia, hematuria or incontinence (Storage/Irritative symptoms.) Low urinary stream, straining to void, urinary intermittency or hesitancy, splitting of the voiding stream, terminal dribbling. ENDOCRINOLOGIC: Denies polyuria, polydipsia, polyphagia or heat/cold in tolerances. HEMATOLOGIC: Denies thrombophilia/previous clots, or coagulopathy/bleeding disorders. ONCOLOGIC: Denies personal history of malignancy. DERMATOLOGIC: Denies rashes or pruritus. PSYCHIATRIC: Denies any suicidal or homicidal ideation. Denies hallucinations. PHYSICAL EXAM GENERAL APPEARANCE: The patient is awake, alert, and oriented, in no acute cardiopulmonary distress. NEUROLOGICAL: Cranial nerves II-XII grossly intact. Motor is 5/5 in bilateral upper and lower extremities proximal to distal. No sensory deficits. HEENT: Face is symmetric. Pupils are equal and reactive. Extraocular movements are intact. NECK: Supple. No JVD. No thyromegaly. No submental, submandibular, pre- /postauricular, occipital or supraclavicular lymphadenopathy. CHEST: Normal chest expansion. No Telemetry. LUNGS: Absence of any rales, rhonchi or any wheezing. CARDIOVASCULAR: Regular. S1 and S2 normal. No appreciable rubs, murmurs or gallops. ABDOMEN: Soft, nontender, and nondistended. There is no rebound, voluntary guarding, or rigidity. : Deferred. No [place]. EXTREMITIES: Left leg swollen, red and tender to touch SKIN: To blisters intact to left lower leg Vital Signs (last 8hr) Date Time Temp Pulse Resp B/P (MAP) Pulse Ox O2 Delivery O2 Flow Rate FiO2 01/18/25 11:58 99.1 104 20 131/61 94 Room Air 21 01/18/25 09:41 146/73 01/18/25 08:00 99.1 114 21 146/78 92 Room Air LABS: Laboratory: Test 01/18/25 11:41 01/18/25 03:38 01/17/25 05:10 Range/Units Whole Blood Glucose 241 H 70-110 MG/DL Bedside Glucose Comment Notified Nurse White Blood Count 8.6 4.8-10.8 K/uL Red Blood Count 3.71 L 4.00-5.50 MIL/uL Hemoglobin 12.1 12.0-16.0 g/dL Hematocrit 35.6 L 36-48 % Mean Corpuscular Volume 96.0 79-99 fL Mean Corpuscular Hemoglobin 32.6 27.0-33.0 pg Mean Corpuscular Hemoglobin Concent 34.0 32.0-36.0 g/dL Red Cell Distribution Width 11.8 11.0-15.5 % Platelet Count 223 130-400 K/uL Mean Platelet Volume 10.3 7.5-10.5 fL Immature Granulocyte % (Auto) 0.6 0-1 % Neutrophils (%) (Auto) 71.0 40.0-77.0 % Lymphocytes (%) (Auto) 16.1 L 21.0-51.0 % Monocytes (%) (Auto) 10.3 3.0-13.0 % Eosinophils (%) (Auto) 1.7 0.0-8.0 % Basophils (%) (Auto) 0.3 0.0-5.0 % Neutrophils # (Auto) 6.1 1.8-7.7 K/uL Lymphocytes # (Auto) 1.4 1.0-4.8 K/uL Monocytes # (Auto) 0.9 0.1-1.0 K/uL Eosinophils # (Auto) 0.15 0.00-0.70 K/uL Basophils # (Auto) 0.03 0.00-0.20 K/uL Absolute Immature Granulocyte (auto 0.05 0-1 K/uL Nucleated Red Blood Cells 0.0 0.0-0.19 % Sodium Level 136 136-145 mmol/L Potassium Level 4.4 3.5-5.1 mmol/L Chloride Level 101 101-111 mmol/L Carbon Dioxide Level 26 21-32 mmol/L Blood Urea Nitrogen 8 7-18 mg/dL Creatinine 0.7 0.5-1.0 mg/dL Glomerular Filtration Rate Calc 104 >90 mL/min Random Glucose 266 H 70-105 mg/dL Lactic Acid Level 1.3 0.8-2.5 mmol/L Total Calcium 8.5 8.5-10.1 mg/dL Magnesium Level 1.60 L 1.80-2.40 mg/dL Total Bilirubin 0.5 # 0.2-1.0 mg/dL Direct Bilirubin 0.2 0.0-0.3 mg/dL Aspartate Amino Transf (AST/SGOT) 25 10-37 U/L Alanine Aminotransferase (ALT/SGPT) 48 12-78 U/L Alkaline Phosphatase 82 50-136 U/L Total Creatine Kinase 34 21-232 U/L B-Type Natriuretic Peptide 14 0-100 pg/mL Total Protein 6.4 6.0-8.3 g/dL Albumin 2.6 L 3.5-5.0 g/dL Amylase Level 31 25-115 U/L Procalcitonin 0.32 0.05-0.5 ng/mL Vancomycin Level Trough 7.0 #L 10.0-20.0 UG/ML Current Medications Medications (Trade) Dose Ordered Sig/Chadd Route PRN Reason Start Time Stop Time Status Last Admin Dose Admin Atorvastatin Calcium (LIPItor 40MG) 40 mg HS PO 01/17/25 21:00 02/16/25 20:59 01/17/25 20:35 40 MG Carvedilol (Coreg 3.125MG) 3.125 mg BID PO 01/17/25 21:00 02/16/25 20:59 01/18/25 09:41 3.125 MG Cefepime HCl (MAXipime 1 GM vial) 1 gm Q12H IVPB 01/15/25 17:30 01/15/25 21:22 DC 01/15/25 17:32 1 GM Cefepime HCl (MAXipime 1 GM vial) 1 gm Q12H IVPB 01/16/25 05:00 01/26/25 04:59 01/18/25 04:08 1 GM Dextrose (D50w) 50 ml AD PRN IV HYPOGLYCEMIA PROTOCOL 01/15/25 21:00 02/14/25 20:59 Famotidine (Pepcid 20mg Tab) 20 mg BID PO 01/15/25 21:00 02/14/25 20:59 01/18/25 09:40 20 MG Glucagon (Glucagon 1mg Kit) 1 mg AD PRN IM HYPOGLYCEMIA PROTOCOL 01/15/25 21:00 02/14/25 20:59 Insulin Human Regular (humuLIN R 100 UNIT/ML 3ML) INSULIN SLIDING SCAL... ACHS SQ 01/15/25 21:00 01/15/25 22:34 DC 01/15/25 21:23 4 UNIT Insulin Human Regular (humuLIN R 100 UNIT/ML 3ML) INSULIN SLIDING SCAL... ACHS SQ 01/16/25 18:30 02/14/25 22:59 01/18/25 06:18 6 UNIT Insulin Human Regular (humuLIN R 100 UNIT/ML 3ML) INSULIN SLIDING SCAL... Q4H SQ 01/15/25 23:00 01/16/25 18:30 DC 01/16/25 16:56 4 UNIT Lisinopril (Prinivil 10mg) 10 mg DAILY PO 01/18/25 09:00 02/17/25 08:59 01/18/25 09:41 10 MG Magnesium Sulfate 50 ml @ 0 mls/hr PROTOCOL IV 01/16/25 10:00 02/15/25 09:59 01/18/25 10:48 50 MLS/HR Magnesium Sulfate 50 ml @ 0 mls/hr PROTOCOL PRN IV OTHER [SEE ORDER COMMENTS] 01/15/25 21:00 01/16/25 09:40 DC Montelukast Sodium (SinguLAIR) 10 mg DAILYDINNER PO 01/17/25 17:00 02/16/25 16:59 01/17/25 17:04 10 MG Potassium Chloride 100 ml @ 100 mls/hr AD PRN IV POTASSIUM PROTOCOL 01/15/25 21:00 02/14/25 20:59 Potassium Chloride (K-Dur/Klor-Con 20meq) 20 meq AD PRN PO POTASSIUM PROTOCOL 01/15/25 21:00 02/14/25 20:59 Potassium Chloride (KCl 10% Elixir 20meq/15ml) 20 meq AD PRN PO POTASSIUM PROTOCOL 01/15/25 21:00 02/14/25 20:59 Sodium Chloride 1,000 ml @ 0 mls/hr ONCE IV 01/15/25 17:30 01/16/25 13:12 DC 01/15/25 17:32 999 MLS/HR Sodium Chloride 1,000 ml @ 75 mls/hr [id number] IV 01/15/25 21:00 01/17/25 21:51 DC 01/17/25 11:52 75 MLS/HR Tramadol HCl (UltRAM) 25 mg Q6H PRN PO MODERATE PAIN (4-6) 01/16/25 14:00 01/21/25 13:59 01/17/25 20:41 25 MG Tramadol HCl (UltRAM) 25 mg Q6H6 PRN PO MODERATE PAIN (4-6) 01/16/25 14:00 01/16/25 13:50 DC Vancomycin HCl 250 ml @ 125 mls/hr ONCE IV 01/15/25 18:00 01/15/25 21:19 DC 01/15/25 18:21 125 MLS/HR Vancomycin HCl 250 ml @ 125 mls/hr ONCE IV 01/15/25 21:00 01/15/25 21:11 DC Vancomycin HCl 250 ml @ 125 mls/hr Q8H IV 01/16/25 02:00 01/16/25 17:46 DC 01/16/25 10:39 125 MLS/HR Vancomycin HCl 250 ml @ 125 mls/hr Q8H IV 01/17/25 06:00 01/27/25 05:59 01/18/25 05:02 125 MLS/HR Vancomycin HCl 250 ml @ 125 mls/hr Q8H6 IV 01/15/25 23:30 01/15/25 21:10 DC Vancomycin HCl (Vancomycin Protocol) 1 each AD IV 01/15/25 17:30 01/29/25 17:29 DIAGNOSTICS / RADIOLOGY: [ ] ASSESSMENT: Left lower extremity cellulitis POA Morbid obesity POA Hypertension POA Hyperlipidemia POA Uncontrolled diabetes POA Hyponatremia due to hyperglycemia POA PLAN: Final blood in ankle culture still pending. Continue antibiotics vancomycin and cefepime as prescribed by ID. H&H stable. WBC 8.6. Patient will receive 2 g of magnesium for magnesium 1.6. Venous Doppler negative for DVT no superficial thrombophlebitis in the left lower extremity. We will continue to monitor patient in the meantime. A.m. labs Chest x-ray negative continue patient in medical surgical continue on consistent carb diet continue famotidine 20 mg p.o. b.i.d. for GI prophylaxis We will replace electrolytes as needed per protocol We will start on insulin sliding Q4H with hypoglycemia protocol We will add prn medication for fever,pain,cough , nausea and vomiting Home medication reconciled by COMMUNITY DEVELOPMENT SPECIALIST 01/17/2025 Further orders to follow depending on above results Case discussed with attending physician and came up with above treatment and plan of care. ATTESTATION BY PHYSICIAN I have seen and examined the patient. I reviewed the documentation, medical decision making, and treatment plan as noted by the mid-level provider above. I agree with the findings and plan of care. STEPHAN LUJAN MD, [facility] [employer] Jan 18, 2025 12:24
[2025-01-18] MEDS ORDERED: MAGNESIUM 2GM PREMIX 50ML 50 ML IV SCH (12:30)
--- NOTE | 2025-01-18 16:06 | PN ---
INFECTIOUS DISEASE PROGRESS NOTE Date of Service: Jan 18, 2025 SUBJECTIVE: This is a 54-year-old female patient who was seen at bedside in room 419. Patient was admitted with erythema to the left lower extremity, patient however was found with abscesses draining purulent drainage. Temperature this morning is 99.1. Currently continues on vancomycin and cefepime. We will follow up on the final culture results. We will place PICC line and refer patient to [facility] for outpatient IV antibiotics. We will continue to follow patient's care. PHYSICAL EXAM EYES: Anicteric. Pupils equal and reactive. HENT: No oral thrush seen, moist Oral mucosa. NECK: Supple, no JVD or thyromegaly. LUNGS: Good air entry. No rales, no rhonchi. CARDIOVASCULAR: S1, S2 regular. No murmur heard. ABDOMEN: Soft, non tender, bowel sounds present, no organomegaly. CENTRAL NERVOUS SYSTEM: Awake, alert, oriented x 3. SKIN: No rashes, no swelling. LYMPHATICS: No peripheral lymphadenopathy. MUSCULOSKELETAL: No joint swelling, erythema or tenderness. EXTREMITIES: No cyanosis or clubbing. Left lower extremity abscess. BACK: No deformity, no pressure ulcer. GENITOURINARY: No dysuria or hematuria. Vital Sign (Last 12 Hours) 01/18/25 01/18/25 01/18/25 08:00 09:41 11:58 Temp 99.1 99.1 Pulse 114 104 Resp 21 20 B/P (MAP) 146/78 146/73 131/61 Pulse Ox 92 94 O2 Delivery Room Air Room Air FiO2 21 Intake & Output (last 24hrs) 01/17/25 01/17/25 01/18/25 15:00 23:00 07:00 Intake Total 1450.0 ml 300.0 ml Balance 1450.0 ml 300.0 ml LABS: Laboratory: Test 01/18/25 11:41 01/18/25 03:38 01/17/25 05:10 Range/Units Whole Blood Glucose 241 H 70-110 MG/DL Bedside Glucose Comment Notified Nurse White Blood Count 8.6 4.8-10.8 K/uL Red Blood Count 3.71 L 4.00-5.50 MIL/uL Hemoglobin 12.1 12.0-16.0 g/dL Hematocrit 35.6 L 36-48 % Mean Corpuscular Volume 96.0 79-99 fL Mean Corpuscular Hemoglobin 32.6 27.0-33.0 pg Mean Corpuscular Hemoglobin Concent 34.0 32.0-36.0 g/dL Red Cell Distribution Width 11.8 11.0-15.5 % Platelet Count 223 130-400 K/uL Mean Platelet Volume 10.3 7.5-10.5 fL Immature Granulocyte % (Auto) 0.6 0-1 % Neutrophils (%) (Auto) 71.0 40.0-77.0 % Lymphocytes (%) (Auto) 16.1 L 21.0-51.0 % Monocytes (%) (Auto) 10.3 3.0-13.0 % Eosinophils (%) (Auto) 1.7 0.0-8.0 % Basophils (%) (Auto) 0.3 0.0-5.0 % Neutrophils # (Auto) 6.1 1.8-7.7 K/uL Lymphocytes # (Auto) 1.4 1.0-4.8 K/uL Monocytes # (Auto) 0.9 0.1-1.0 K/uL Eosinophils # (Auto) 0.15 0.00-0.70 K/uL Basophils # (Auto) 0.03 0.00-0.20 K/uL Absolute Immature Granulocyte (auto 0.05 0-1 K/uL Nucleated Red Blood Cells 0.0 0.0-0.19 % Sodium Level 136 136-145 mmol/L Potassium Level 4.4 3.5-5.1 mmol/L Chloride Level 101 101-111 mmol/L Carbon Dioxide Level 26 21-32 mmol/L Blood Urea Nitrogen 8 7-18 mg/dL Creatinine 0.7 0.5-1.0 mg/dL Glomerular Filtration Rate Calc 104 >90 mL/min Random Glucose 266 H 70-105 mg/dL Lactic Acid Level 1.3 0.8-2.5 mmol/L Total Calcium 8.5 8.5-10.1 mg/dL Magnesium Level 1.60 L 1.80-2.40 mg/dL Total Bilirubin 0.5 # 0.2-1.0 mg/dL Direct Bilirubin 0.2 0.0-0.3 mg/dL Aspartate Amino Transf (AST/SGOT) 25 10-37 U/L Alanine Aminotransferase (ALT/SGPT) 48 12-78 U/L Alkaline Phosphatase 82 50-136 U/L Total Creatine Kinase 34 21-232 U/L B-Type Natriuretic Peptide 14 0-100 pg/mL Total Protein 6.4 6.0-8.3 g/dL Albumin 2.6 L 3.5-5.0 g/dL Amylase Level 31 25-115 U/L Procalcitonin 0.32 0.05-0.5 ng/mL Vancomycin Level Trough 7.0 #L 10.0-20.0 UG/ML ASSESSMENT: Left lower extremity abscess. Left lower extremity cellulitis. Diabetes mellitus. Obesity. PLAN: Continue vancomycin per pharmacy protocol. Continue cefepime. We will follow up on the culture results. Continue pain management. Continue anti diabetics. Place PICC line. Case management evaluation for referral to [facility] for outpatient IV antibiotics with Vancomycin 1.5 gm q24 and cefepime 1 g Q 8 x 4 weeks. Prescription was written. This case was reviewed and discussed with my supervising physician Dr. Dong and the above assessment and plan was formulated and agreed upon. ATTESTATION BY PHYSICIAN I have seen and examined the patient. I reviewed the documentation, medical decision making, and treatment plan as noted by the mid-level provider above. I agree with the findings and plan of care. MARION DONG MD, MIRTA L [facility] Jan 18, 2025 16:06
[2025-01-18 17:07] LABS: INR 0.99 (0.85-1.15)
--- NOTE | 2025-01-18 19:55 | HMCIMG ---
EXAM: CR Chest, 2 View. CLINICAL HISTORY: piccline placement COMPARISON: None provided. FINDINGS: Left PICC terminates overlying the SVC. LUNGS: There is no mass, infiltrate, or acute pulmonary abnormality. PLEURAL SPACES: No pleural effusion or pneumothorax. MEDIASTINUM: Cardiac size and mediastinal contours within normal limits. BONES: No acute osseous abnormality. IMPRESSION: 1. Left PICC line terminates overlying the SVC. 2. No acute cardiopulmonary abnormality. /[place]
[2025-01-19] VITALS (8 sets, daily range): BP systolic 110–141; BP diastolic 48–70; PULSE 86–114; RESP 16–19; TEMP 98.1–99; O2SAT 96–98
[2025-01-19 04:01] LABS: IMMATURE GRANULOCYTE ABSOLUTE 0.05 K/uL (0-1); NUCLEATED RED BLOOD CELLS 0.0 % (0.0-0.19); PLATELET COUNT (AUTO) 225 K/uL (130-400); RED BLOOD CELL COUNT(AUTO) 3.84 MIL/uL (4.00-5.50); RED CELL DISTRIBUTION WIDTH 11.9 % (11.0-15.5); WHITE BLOOD COUNT (AUTO) 7.0 K/uL (4.8-10.8)
[2025-01-19 04:24] LABS: ASPARTATE AMINOTRANSFERASE 24.0 U/L (10-37); CREATININE 0.6 mg/dL (0.5-1.0); GLOMERULAR FILTR. RATE CALC 108.0 mL/min (>90); GLUCOSE,RANDOM 247.0 mg/dL (70-105); SODIUM SERUM 135.0 mmol/L (136-145); TOTAL PROTEIN, SERUM 6.4 g/dL (6.0-8.3); UREA NITROGEN, BLOOD 10.0 mg/dL (7-18)
--- NOTE | 2025-01-19 10:24 | NUR ---
DCP: HOME Sw met pt and sister Breana Stuart [phone]. Pt lives with her sister Breana in home they own. 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 Pt remains independent of her ADLS, no DME or HH. Sister transports as needed. PCP is Dr Dai in [place] and uses [facility] in [place]. DCP is home with sisterKarthik SISTER TORI GRANADOS [phone] Addendum: 01/19/25 at 1035 by BRENT LIZARRAGA SS Amended: Links added.
--- NOTE | 2025-01-19 13:09 | NUR ---
[facility] Consult: Patient assessed by wound healing team. See wound assessment. Assessment and recommendations provided to primary nurse. Education provided to patient regarding wound care treatment. Addendum: 01/19/25 at 1625 by ROBERTO BARNEY RN RN/ Amended: Links added.
--- NOTE | 2025-01-19 13:12 | NUR ---
wound team at bed side to treat and eval
--- NOTE | 2025-01-19 13:30 | PN ---
[facility] PROGRESS NOTE Date of Service: Jan 19, 2025 Time of Service: 13:27 SUBJECTIVE: [ 01/15 This is a 54-year-old female with past medical history of diabetes, hypertension, hyperlipidemia and morbid obesity who presents to the ER for complaints of left lower extremity cellulitis which started over a month the patient is taking Bactrim x 12 days but no improvement so patient is being referred to the ED for evaluation.Patient states her left leg just get swollen, inflamed and painful and has 2 blisters that are still intact.Patient denies trauma,insect bites and no fall injury.Patient reports she was seen by her PCP and was advised to come for a possible IV antibiotic.Patient reports 4/10 pain level on the site.Patient reports having fever and chills today but did not check temperature. Latest vital signs temperature 99.7, heart rate 116, blood pressure 144/63 saturation 95% on room air. WBC 10, neutrophils 87, hemoglobin 13, hematocrit 41, platelet count 293. Sodium 132, chloride 98, BUN 22, glucose 366 lactic acid 2.2-1.4 troponin 27 BNP 10. Urinalysis remarkable for glucose more than 1000, ketones five, urine RBC 6-10, urine WBC 2-5. Chest x-ray result is unremarkable. Venous Doppler of the left lower extremity result revealed no DVT . While in the ER patient received 1 L NS bolus, vancomycin IV and cefepime IV. We will admit patient for further medical management. 01/16 patient was seen by nurse practitioner and physician during rounding. chest x-ray is negative. Venous Doppler negative for DVT. Blood cultures pending. Infectious Disease is pending to see patient, continues to be on cefepime and vancomycin. Patient will receive 2 g of magnesium for magnesium of 1.5. We will continue to monitor patient in the meantime. A.m. labs 01/17 patient was seen by nurse practitioner and physician during rounding in room 419. Patient is pending blood culture and wound culture. As per ID he was able to pop the blister of the left ankle and culture was sent to the lab. Venous Doppler negative. Chest x-ray negative. Continue cefepime and vancomycin. UA negative. We will continue to monitor patient in the meantime. A.m. labs. 01/18 patient was seen by LINE WORKER and physician. Final blood in ankle culture still pending. Continue antibiotics vancomycin and cefepime as prescribed by ID. H&H stable. WBC 8.6. Patient will receive 2 g of magnesium for magnesium 1.6. Venous Doppler negative for DVT no superficial thrombophlebitis in the left lower extremity. We will continue to monitor patient in the meantime. A.m. labs] 01/19 patient was seen by LINE WORKER and physician. Left ankle fracture positive for staphylococcus aureus. Continue iv antibiotics, follow ID recommendations.Venous Doppler negative for DVT no superficial thrombophlebitis in the left lower extremity. We will continue to monitor patient in the meantime. A.m. labs REVIEW OF SYSTEMS CONSTITUTIONAL: Denies fevers, chills, or night sweats. No unintentional weight loss reported. NEUROLOGICAL: Denies headache, amaurosis fugax, motor weakness, sensory deficit, vertigo/spinning sensation, gait abnormalities, or tremors. ENT: No hearing loss, otalgia, otorrhea, rhinitis, rhinorrhea, hoarseness, or sore throat. CARDIOVASCULAR: Denies any exertional angina, dyspnea on exertion, orthopnea, paroxysmal nocturnal dyspnea, palpitations, life-threatening arrhythmias, claudication. PULMONARY: Denies any shortness of breath, cough, phlegm/sputum, hemoptysis, pleuritic chest pain. SLEEP: Denies morning headaches, daytime somnolence or napping. Denies difficulty falling asleep, staying asleep, waking from sleep. Denies knowledge of snoring. GASTROINTESTINAL: Morbidly obese Denies any type of dysphagia to either liquids or solids. Denies nausea, vomiting, pyrosis, early satiety, abdominal pain, diarrhea, constipation, or changes in stool consistency or caliber. Denies coffee-ground emesis, hematemesis, hematochezia, or melanotic stools. GENITOURINARY: Denies frequency, urgency, nocturia, hematuria or incontinence (Storage/Irritative symptoms.) Low urinary stream, straining to void, urinary intermittency or hesitancy, splitting of the voiding stream, terminal dribbling. ENDOCRINOLOGIC: Denies polyuria, polydipsia, polyphagia or heat/cold intolerances. HEMATOLOGIC: Denies thrombophilia/previous clots, or coagulopathy/bleeding disorders. ONCOLOGIC: Denies personal history of malignancy. DERMATOLOGIC: Denies rashes or pruritus. PSYCHIATRIC: Denies any suicidal or homicidal ideation. Denies hallucinations. PHYSICAL EXAM GENERAL APPEARANCE: The patient is awake, alert, and oriented, in no acute cardiopulmonary distress. NEUROLOGICAL: Cranial nerves II-XII grossly intact. Motor is 5/5 in bilateral upper and lower extremities proximal to distal. No sensory deficits. HEENT: Face is symmetric. Pupils are equal and reactive. Extraocular movements are intact. NECK: Supple. No JVD. No thyromegaly. No submental, submandibular, pre- /postauricular, occipital or supraclavicular lymphadenopathy. CHEST: Normal chest expansion. No Telemetry. LUNGS: Absence of any rales, rhonchi or any wheezing. CARDIOVASCULAR: Regular. S1 and S2 normal. No appreciable rubs, murmurs or gallops. ABDOMEN: Soft, nontender, and nondistended. There is no rebound, voluntary guarding, or rigidity. : Deferred. No [place]. EXTREMITIES: Left leg swollen, red and tender to touch SKIN: To blisters intact to left lower leg Vital Signs (last 8hr) Date Time Temp Pulse Resp B/P (MAP) Pulse Ox O2 Delivery O2 Flow Rate FiO2 01/19/25 12:16 98.2 107 18 141/70 94 Room Air 01/19/25 11:45 141/66 01/19/25 08:09 99.0 97 18 141/66 92 Room Air 01/19/25 07:45 98 Room Air* 0 21 LABS: Laboratory: Test 01/19/25 11:11 01/19/25 03:46 01/18/25 20:50 01/18/25 16:28 Range/Units Whole Blood Glucose 292 H 70-110 MG/DL White Blood Count 7.0 4.8-10.8 K/uL Red Blood Count 3.84 L 4.00-5.50 MIL/uL Hemoglobin 12.5 12.0-16.0 g/dL Hematocrit 36.3 36-48 % Mean Corpuscular Volume 94.5 79-99 fL Mean Corpuscular Hemoglobin 32.6 27.0-33.0 pg Mean Corpuscular Hemoglobin Concent 34.4 32.0-36.0 g/dL Red Cell Distribution Width 11.9 11.0-15.5 % Platelet Count 225 130-400 K/uL Mean Platelet Volume 10.2 7.5-10.5 fL Immature Granulocyte % (Auto) 0.7 0-1 % Neutrophils (%) (Auto) 66.7 40.0-77.0 % Lymphocytes (%) (Auto) 19.5 L 21.0-51.0 % Monocytes (%) (Auto) 10.1 3.0-13.0 % Eosinophils (%) (Auto) 2.4 0.0-8.0 % Basophils (%) (Auto) 0.6 0.0-5.0 % Neutrophils # (Auto) 4.7 1.8-7.7 K/uL Lymphocytes # (Auto) 1.4 1.0-4.8 K/uL Monocytes # (Auto) 0.7 0.1-1.0 K/uL Eosinophils # (Auto) 0.17 0.00-0.70 K/uL Basophils # (Auto) 0.04 0.00-0.20 K/uL Absolute Immature Granulocyte (auto 0.05 0-1 K/uL Nucleated Red Blood Cells 0.0 0.0-0.19 % Sodium Level 135 L 136-145 mmol/L Potassium Level 4.0 3.5-5.1 mmol/L Chloride Level 99 L 101-111 mmol/L Carbon Dioxide Level 27 21-32 mmol/L Blood Urea Nitrogen 10 7-18 mg/dL Creatinine 0.6 0.5-1.0 mg/dL Glomerular Filtration Rate Calc 108 >90 mL/min Random Glucose 247 H 70-105 mg/dL Total Calcium 8.8 8.5-10.1 mg/dL Magnesium Level 1.90 1.80-2.40 mg/dL Total Bilirubin 0.5 0.2-1.0 mg/dL Aspartate Amino Transf (AST/SGOT) 24 10-37 U/L Alanine Aminotransferase (ALT/SGPT) 40 12-78 U/L Alkaline Phosphatase 80 50-136 U/L Total Protein 6.4 6.0-8.3 g/dL Albumin 2.7 L 3.5-5.0 g/dL Vancomycin Level Trough 12.2 # 10.0-20.0 UG/ML Prothrombin Time 10.5 9.6-11.6 SEC Prothromb Time International Ratio 0.99 0.85-1.15 Activated Partial Thromboplast Time 23.0 L 26.3-35.5 SEC Test 01/18/25 16:11 01/18/25 03:38 Range/Units Bedside Glucose Comment Notified Nurse Lactic Acid Level 1.3 0.8-2.5 mmol/L Direct Bilirubin 0.2 0.0-0.3 mg/dL Total Creatine Kinase 34 21-232 U/L B-Type Natriuretic Peptide 14 0-100 pg/mL Amylase Level 31 25-115 U/L Procalcitonin 0.32 0.05-0.5 ng/mL Current Medications Medications (Trade) Dose Ordered Sig/Chadd Route PRN Reason Start Time Stop Time Status Last Admin Dose Admin Atorvastatin Calcium (LIPItor 40MG) 40 mg HS PO 01/17/25 21:00 02/16/25 20:59 01/18/25 20:08 40 MG Carvedilol (Coreg 3.125MG) 3.125 mg BID PO 01/17/25 21:00 02/16/25 20:59 01/19/25 11:45 3.125 MG Cefepime HCl (MAXipime 1 GM vial) 1 gm Q12H IVPB 01/15/25 17:30 01/15/25 21:22 DC 01/15/25 17:32 1 GM Cefepime HCl (MAXipime 1 GM vial) 1 gm Q12H IVPB 01/16/25 05:00 01/26/25 04:59 01/19/25 04:09 1 GM Dextrose (D50w) 50 ml AD PRN IV HYPOGLYCEMIA PROTOCOL 01/15/25 21:00 02/14/25 20:59 Famotidine (Pepcid 20mg Tab) 20 mg BID PO 01/15/25 21:00 02/14/25 20:59 01/19/25 11:48 20 MG Glucagon (Glucagon 1mg Kit) 1 mg AD PRN IM HYPOGLYCEMIA PROTOCOL 01/15/25 21:00 02/14/25 20:59 Insulin Human Regular (humuLIN R 100 UNIT/ML 3ML) INSULIN SLIDING SCAL... ACHS SQ 01/15/25 21:00 01/15/25 22:34 DC 01/15/25 21:23 4 UNIT Insulin Human Regular (humuLIN R 100 UNIT/ML 3ML) INSULIN SLIDING SCAL... ACHS SQ 01/16/25 18:30 02/14/25 22:59 01/19/25 12:11 6 UNIT Insulin Human Regular (humuLIN R 100 UNIT/ML 3ML) INSULIN SLIDING SCAL... Q4H SQ 01/15/25 23:00 01/16/25 18:30 DC 01/16/25 16:56 4 UNIT Lisinopril (Prinivil 10mg) 10 mg DAILY PO 01/18/25 09:00 02/17/25 08:59 01/19/25 11:44 10 MG Magnesium Sulfate 50 ml @ 0 mls/hr PROTOCOL IV 01/16/25 10:00 02/15/25 09:59 01/18/25 10:48 50 MLS/HR Magnesium Sulfate 50 ml @ 0 mls/hr PROTOCOL IV 01/18/25 12:30 01/18/25 12:23 DC Magnesium Sulfate 50 ml @ 0 mls/hr PROTOCOL PRN IV OTHER [SEE ORDER COMMENTS] 01/15/25 21:00 01/16/25 09:40 DC Montelukast Sodium (SinguLAIR) 10 mg DAILYDINNER PO 01/17/25 17:00 02/16/25 16:59 01/18/25 17:17 10 MG Potassium Chloride 100 ml @ 100 mls/hr AD PRN IV POTASSIUM PROTOCOL 01/15/25 21:00 02/14/25 20:59 Potassium Chloride (K-Dur/Klor-Con 20meq) 20 meq AD PRN PO POTASSIUM PROTOCOL 01/15/25 21:00 02/14/25 20:59 Potassium Chloride (KCl 10% Elixir 20meq/15ml) 20 meq AD PRN PO POTASSIUM PROTOCOL 01/15/25 21:00 02/14/25 20:59 Sodium Chloride 1,000 ml @ 0 mls/hr ONCE IV 01/15/25 17:30 01/16/25 13:12 DC 01/15/25 17:32 999 MLS/HR Sodium Chloride 1,000 ml @ 75 mls/hr [id number] IV 01/15/25 21:00 01/17/25 21:51 DC 01/17/25 11:52 75 MLS/HR Tramadol HCl (UltRAM) 25 mg Q6H PRN PO MODERATE PAIN (4-6) 01/16/25 14:00 01/21/25 13:59 01/19/25 11:44 25 MG Tramadol HCl (UltRAM) 25 mg Q6H6 PRN PO MODERATE PAIN (4-6) 01/16/25 14:00 01/16/25 13:50 DC Vancomycin HCl 250 ml @ 125 mls/hr ONCE IV 01/15/25 18:00 01/15/25 21:19 DC 01/15/25 18:21 125 MLS/HR Vancomycin HCl 250 ml @ 125 mls/hr ONCE IV 01/15/25 21:00 01/15/25 21:11 DC Vancomycin HCl 250 ml @ 125 mls/hr Q8H IV 01/16/25 02:00 01/16/25 17:46 DC 01/16/25 10:39 125 MLS/HR Vancomycin HCl 250 ml @ 125 mls/hr Q8H IV 01/17/25 06:00 01/27/25 05:59 01/19/25 05:04 125 MLS/HR Vancomycin HCl 250 ml @ 125 mls/hr Q8H6 IV 01/15/25 23:30 01/15/25 21:10 DC Vancomycin HCl (Vancomycin Protocol) 1 each AD IV 01/15/25 17:30 01/29/25 17:29 DIAGNOSTICS / RADIOLOGY: [ ] ASSESSMENT: Left lower extremity cellulitis POA Morbid obesity POA Hypertension POA Hyperlipidemia POA Uncontrolled diabetes POA Hyponatremia due to hyperglycemia POA PLAN: patient was seen by LINE WORKER and physician. Left ankle fracture positive for st aphylococcus aureus. Continue iv antibiotics, follow ID recommendations.Venous Doppler negative for DVT no superficial thrombophlebitis in the left lower extremity. We will continue to monitor patient in the meantime. A.m. labs patient remains admitted to the medical floor. Chest x-ray negative continue patient in medical surgical continue on consistent carb diet continue famotidine 20 mg p.o. b.i.d. for GI prophylaxis We will replace electrolytes as needed per protocol We will start on insulin sliding Q4H with hypoglycemia protocol We will add prn medication for fever,pain,cough , nausea and vomiting Home medication reconciled by LINE WORKER 01/17/2025 Further orders to follow depending on above results STEPHAN LUJAN MD Jan 19, 2025 13:30
--- NOTE | 2025-01-19 17:13 | CONS ---
CONSULTATION NOTE Date of Service: Jan 19, 2025 Reason for Consultation: [ ] Requesting Physician: [ ] HISTORY OF PRESENT ILLNESS: [ ] REVIEW OF SYSTEMS CONSTITUTIONAL: Denies fever, chills, or fatigue. HEAD/FACE: No signs of trauma. EENT: Denies eye pain, blurred vision, double vision, or light sensitivity. RESPIRATORY: Denies shortness of breath, cough, wheezing CARDIOVASCULAR: Denies chest pain, palpitation, syncope GASTROINTESTINAL/ABDOMINAL: Denies abdominal pain, constipation, diarrhea, nausea or vomiting GENITOURINARY: Denies dysuria or hematuria. MUSCULOSKELETAL: Denies joint pain, tenderness, or trauma. INTEGUMENTARY: Denies rash or itchiness NEUROLOGICAL/PSYCH: Denies anxiety, depression, heat or cold intolerance. PAST MEDICAL HISTORY: [ ] PAST SURGICAL HISTORY: [ ] PAST SOCIAL HISTORY: [ ] FAMILY HISTORY: [ ] Coded Allergies: No Known Allergies (Unverified Allergy, Unknown, 01/15/25) PHYSICAL EXAM EYES: Anicteric. Pupils equal and reactive. HENT: No oral thrush seen, moist Oral mucosa NECK: Supple, no JVD or thyromegaly. LUNGS: Good air entry. No rales, no rhonchi. CARDIOVASCULAR: S1, S2 regular. No murmur heard. ABDOMEN: Soft, non tender, bowel sounds present, no organomegaly CENTRAL NERVOUS SYSTEM: Awake, alert, oriented x 3. No focal deficits. SKIN: No rashes, no swelling. LYMPHATICS: No peripheral lymphadenopathy MUSCULOSKELETAL: No joint swelling, erythema or tenderness. EXTREMITIES: No cyanosis or clubbing BACK: No deformity, no pressure ulcer. GENITOURINARY: No dysuria or hematuria Vital Sign (Last 24 Hours) 01/19/25 01/19/25 07:45 15:36 Temp 98.1 Pulse 100 Resp 16 B/P (MAP) 118/48 Pulse Ox 98 O2 Delivery Room Air O2 Flow Rate 0 FiO2 21 Intake & Output (last 24hrs) 01/18/25 01/18/25 01/19/25 14:59 22:59 06:59 Intake Total 480 ml 250.0 ml Balance 480 ml 250.0 ml LABS: Laboratory: Test 01/19/25 15:04 01/19/25 03:46 01/18/25 20:50 01/18/25 16:28 Range/Units Whole Blood Glucose 235 H 70-110 MG/DL Bedside Glucose Comment Notified Nurse White Blood Count 7.0 4.8-10.8 K/uL Red Blood Count 3.84 L 4.00-5.50 MIL/uL Hemoglobin 12.5 12.0-16.0 g/dL Hematocrit 36.3 36-48 % Mean Corpuscular Volume 94.5 79-99 fL Mean Corpuscular Hemoglobin 32.6 27.0-33.0 pg Mean Corpuscular Hemoglobin Concent 34.4 32.0-36.0 g/dL Red Cell Distribution Width 11.9 11.0-15.5 % Platelet Count 225 130-400 K/uL Mean Platelet Volume 10.2 7.5-10.5 fL Immature Granulocyte % (Auto) 0.7 0-1 % Neutrophils (%) (Auto) 66.7 40.0-77.0 % Lymphocytes (%) (Auto) 19.5 L 21.0-51.0 % Monocytes (%) (Auto) 10.1 3.0-13.0 % Eosinophils (%) (Auto) 2.4 0.0-8.0 % Basophils (%) (Auto) 0.6 0.0-5.0 % Neutrophils # (Auto) 4.7 1.8-7.7 K/uL Lymphocytes # (Auto) 1.4 1.0-4.8 K/uL Monocytes # (Auto) 0.7 0.1-1.0 K/uL Eosinophils # (Auto) 0.17 0.00-0.70 K/uL Basophils # (Auto) 0.04 0.00-0.20 K/uL Absolute Immature Granulocyte (auto 0.05 0-1 K/uL Nucleated Red Blood Cells 0.0 0.0-0.19 % Sodium Level 135 L 136-145 mmol/L Potassium Level 4.0 3.5-5.1 mmol/L Chloride Level 99 L 101-111 mmol/L Carbon Dioxide Level 27 21-32 mmol/L Blood Urea Nitrogen 10 7-18 mg/dL Creatinine 0.6 0.5-1.0 mg/dL Glomerular Filtration Rate Calc 108 >90 mL/min Random Glucose 247 H 70-105 mg/dL Total Calcium 8.8 8.5-10.1 mg/dL Magnesium Level 1.90 1.80-2.40 mg/dL Total Bilirubin 0.5 0.2-1.0 mg/dL Aspartate Amino Transf (AST/SGOT) 24 10-37 U/L Alanine Aminotransferase (ALT/SGPT) 40 12-78 U/L Alkaline Phosphatase 80 50-136 U/L Total Protein 6.4 6.0-8.3 g/dL Albumin 2.7 L 3.5-5.0 g/dL Vancomycin Level Trough 12.2 # 10.0-20.0 UG/ML Prothrombin Time 10.5 9.6-11.6 SEC Prothromb Time International Ratio 0.99 0.85-1.15 Activated Partial Thromboplast Time 23.0 L 26.3-35.5 SEC Test 01/18/25 03:38 Range/Units Lactic Acid Level 1.3 0.8-2.5 mmol/L Direct Bilirubin 0.2 0.0-0.3 mg/dL Total Creatine Kinase 34 21-232 U/L B-Type Natriuretic Peptide 14 0-100 pg/mL Amylase Level 31 25-115 U/L Procalcitonin 0.32 0.05-0.5 ng/mL DIAGNOSTICS / RADIOLOGY: [ ] PROBLEM LIST : Medical Problems: (1) Cellulitis ICD Codes: L03.90 - Cellulitis, unspecified (2) Failure of outpatient treatment ICD Codes: Z78.9 - Other specified health status 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 Thank You for the consult and allowing us to participate in the care of this patient. SHARYN WOLF NP Jan 19, 2025 17:13
[2025-01-19] MEDS: MUPIROCIN OINTMENT 22 GM TUBE TP SCH (20:09)
--- NOTE | 2025-01-19 23:30 | PN ---
INFECTIOUS DISEASE PROGRESS NOTE Date of Service: Jan 19, 2025 SUBJECTIVE: This is a 54-year-old female patient who was seen and examined at bedside in room 419. The final left lower extremity wound culture results came back positive for methicillin-susceptible Staphylococcus aureus. Remaining afebrile, temperature 98.2. Patient currently continues on vancomycin and cefepime. Patient has been referred to [facility] for outpatient IV antibiotics for 4 weeks and pending insurance approval. Patient will be discharged once approved. PHYSICAL EXAM EYES: Anicteric. Pupils equal and reactive. HENT: No oral thrush seen, moist Oral mucosa NECK: Supple, no JVD or thyromegaly. LUNGS: Good air entry. No rales, no rhonchi. CARDIOVASCULAR: S1, S2 regular. No murmur heard. ABDOMEN: Soft, non tender, bowel sounds present, no organomegaly CENTRAL NERVOUS SYSTEM: Awake, alert, oriented x 3. SKIN: No rashes, no swelling. LYMPHATICS: No peripheral lymphadenopathy MUSCULOSKELETAL: No joint swelling, erythema or tenderness. EXTREMITIES: No cyanosis or clubbing. Left lower extremity abscess. BACK: No deformity, no pressure ulcer. GENITOURINARY: No dysuria or hematuria Vital Sign (Last 12 Hours) 01/19/25 01/19/25 01/19/25 01/19/25 11:45 12:16 15:36 19:15 Temp 98.2 98.1 Pulse 107 100 Resp 18 16 B/P (MAP) 141/66 141/70 118/48 Pulse Ox 94 98 96 O2 Delivery Room Air Room Air Room Air* O2 Flow Rate 0 FiO2 21 01/19/25 01/19/25 01/19/25 19:35 20:08 23:16 Temp 98.8 99.0 Pulse 114 106 Resp 19 19 B/P (MAP) 124/60 124/60 110/52 Pulse Ox 96 99 O2 Delivery Room Air Room Air FiO2 21 21 Intake & Output (last 24hrs) 01/18/25 01/18/25 01/19/25 14:59 22:59 06:59 Intake Total 480 ml 250.0 ml Balance 480 ml 250.0 ml LABS: Laboratory: Test 01/19/25 19:22 01/19/25 15:04 01/19/25 03:46 01/18/25 20:50 Range/Units Whole Blood Glucose 269 H 70-110 MG/DL Bedside Glucose Comment Notified Nurse White Blood Count 7.0 4.8-10.8 K/uL Red Blood Count 3.84 L 4.00-5.50 MIL/uL Hemoglobin 12.5 12.0-16.0 g/dL Hematocrit 36.3 36-48 % Mean Corpuscular Volume 94.5 79-99 fL Mean Corpuscular Hemoglobin 32.6 27.0-33.0 pg Mean Corpuscular Hemoglobin Concent 34.4 32.0-36.0 g/dL Red Cell Distribution Width 11.9 11.0-15.5 % Platelet Count 225 130-400 K/uL Mean Platelet Volume 10.2 7.5-10.5 fL Immature Granulocyte % (Auto) 0.7 0-1 % Neutrophils (%) (Auto) 66.7 40.0-77.0 % Lymphocytes (%) (Auto) 19.5 L 21.0-51.0 % Monocytes (%) (Auto) 10.1 3.0-13.0 % Eosinophils (%) (Auto) 2.4 0.0-8.0 % Basophils (%) (Auto) 0.6 0.0-5.0 % Neutrophils # (Auto) 4.7 1.8-7.7 K/uL Lymphocytes # (Auto) 1.4 1.0-4.8 K/uL Monocytes # (Auto) 0.7 0.1-1.0 K/uL Eosinophils # (Auto) 0.17 0.00-0.70 K/uL Basophils # (Auto) 0.04 0.00-0.20 K/uL Absolute Immature Granulocyte (auto 0.05 0-1 K/uL Nucleated Red Blood Cells 0.0 0.0-0.19 % Sodium Level 135 L 136-145 mmol/L Potassium Level 4.0 3.5-5.1 mmol/L Chloride Level 99 L 101-111 mmol/L Carbon Dioxide Level 27 21-32 mmol/L Blood Urea Nitrogen 10 7-18 mg/dL Creatinine 0.6 0.5-1.0 mg/dL Glomerular Filtration Rate Calc 108 >90 mL/min Random Glucose 247 H 70-105 mg/dL Total Calcium 8.8 8.5-10.1 mg/dL Magnesium Level 1.90 1.80-2.40 mg/dL Total Bilirubin 0.5 0.2-1.0 mg/dL Aspartate Amino Transf (AST/SGOT) 24 10-37 U/L Alanine Aminotransferase (ALT/SGPT) 40 12-78 U/L Alkaline Phosphatase 80 50-136 U/L Total Protein 6.4 6.0-8.3 g/dL Albumin 2.7 L 3.5-5.0 g/dL Vancomycin Level Trough 12.2 # 10.0-20.0 UG/ML Test 01/18/25 16:28 01/18/25 03:38 Range/Units Prothrombin Time 10.5 9.6-11.6 SEC Prothromb Time International Ratio 0.99 0.85-1.15 Activated Partial Thromboplast Time 23.0 L 26.3-35.5 SEC Lactic Acid Level 1.3 0.8-2.5 mmol/L Direct Bilirubin 0.2 0.0-0.3 mg/dL Total Creatine Kinase 34 21-232 U/L B-Type Natriuretic Peptide 14 0-100 pg/mL Amylase Level 31 25-115 U/L Procalcitonin 0.32 0.05-0.5 ng/mL DIAGNOSTICS / RADIOLOGY: PATIENT: ELZBIETA POP ACCT: [id number] LOC: [facility] U: [id number] AGE/SX: 54/F ROOM: [facility] RE01/15/[address]: ANTOINETTE HILTON MD : 1970 BED: 1 DIS: STATUS: ADM IN TLOC: SPEC: [id number] KWAKU: 01/16/25-1529 STATUS: COMP REQ: [id number] RECD: 01/16/25-[address]: MARION DONG MD SOURCE: ANKLE ENTR: 01/16/25-[address]: ANTOINETTE HILTON MD SPDESC: LEFT SELF,REFERRAL ORDERED: AEROBIC CULTURE Procedure Result Nirali Date-Time AEROBIC CULTURE Final 01/19/25-1041 MRL COLONY DESCRIPTION: REPORT 1: 2+ GRAM POSITIVE COCCI IN CLUSTERS IDENTIFICATION AND SENSITIVITY TO FOLLOW REPORT 2: NO FURTHER WORK-UP DONE STAPHYLOCOCCUS AUREUS S. AUREUS M.I.C. RX --------- ---- ERYTHROMYCIN <=0.5 S GENTAMICIN >8 R LEVOFLOXACIN <=1 S VANCOMYCIN 1 S OXACILLIN LUIS 1 S RIFAMPIN <=1 S PENICILLIN 2 Serg TRIMETHOPRIM/SUFLAMETHOXAZOLE <=0.5/9.5 S ASSESSMENT: Left lower extremity abscess. Infection with methicillin-susceptible Staphylococcus aureus. Left lower extremity cellulitis. Diabetes mellitus. Obesity. PLAN: Continue vancomycin per pharmacy protocol. Continue cefepime. Continue pain management. Continue antidiabetics. PICC line has been placed. Pending insurance approval to [facility] for outpatient IV antibiotics with Vancomycin 1.5 gm q24 and cefepime 1 g Q 8 x 4 weeks. This case was reviewed and discussed with my supervising physician Dr. Dong and the above assessment and plan was formulated and agreed upon. ATTESTATION BY PHYSICIAN I have seen and examined the patient. I reviewed the documentation, medical decision making, and treatment plan as noted by the mid-level provider above. I agree with the findings and plan of care. MARION DONG MD, [facility] Jan 19, 2025 23:30
[2025-01-20 03:45] VITALS: BP 121/66; PULSE 101; RESP 19; TEMP 98.1
--- NOTE | 2025-01-20 03:51 | NUR ---
nurse note patient alert and oriented times 3. sister at bedside. plan of care discussed with them and they verbalized understanding. spoke with dr. john. patient is to stay the night to receive antibiotics and will discharge again in the morning after rounding on her. patient is ambulatory to the restroom. she has slept about 6 hours tonight. she has no pain. call light within reach, bed alarm on, 2 side rails up. will continue to monitor patient.
[2025-01-20 07:46] VITALS: BP 112/65; PULSE 102; RESP 20; TEMP 98.3
[2025-01-20] MEDS ORDERED: MUPI22OI2 TP (08:06)
[2025-01-20] MEDS ORDERED: TRAM50TA4 PO (08:06)
--- NOTE | 2025-01-20 08:43 | NUR ---
PATIENT DISCHARGED PATIENT DISCHARGED TO HOME. F/U WITH [facility]. APPT 01/20 AT 10AM. MIDLINE TO [facility] FLUSHED AND WORKING WELL. DISCHARGE INSTRUCTIONS GIVEN. PATIENT AWARE TO F/U WITH PCP IN ONE WEEK. PRESCRIPTIONS FAXED TO PHARMACY. ALL QUESTIONS ANSWERED. PATIENT TAKEN DOWN BY WHEELCHAIR. ALL BELONGINGS SENT WITH PATIENT.
--- NOTE | 2025-01-21 08:35 | DS ---
Discharge Summary Hospital Course Summary: Date of service 01/20/2025 The patient admitted to the hospital 01/15/2025 with the following history of the present illness: This is a 54-year-old female with past medical history of diabetes, hypertension, hyperlipidemia and morbid obesity who presents to the ER for complaints of left lower extremity cellulitis which started over a month the patient is taking Bactrim x 12 days but no improvement so patient is being re ferred to the ED for evaluation.Patient states her left leg just get swollen, inflamed and painful and has 2 blisters that are still intact.Patient denies trauma,insect bites and no fall injury.Patient reports she was seen by her PCP and was advised to come for a possible IV antibiotic.Patient reports 4/10 pain level on the site.Patient reports having fever and chills today but did not check temperature. Latest vital signs temperature 99.7, heart rate 116, blood pressure 144/63 saturation 95% on room air. WBC 10, neutrophils 87, hemoglobin 13, hematocrit 41, platelet count 293. Sodium 132, chloride 98, BUN 22, glucose 366 lactic acid 2.2-1.4 troponin 27 BNP 10. Urinalysis remarkable for glucose more than 1000, ketones five, urine RBC 6-10, urine WBC 2-5. Chest x-ray result is unremarkable. Venous Doppler of the left lower extremity result revealed no DVT . While in the ER patient received 1 L NS bolus, vancomycin IV and cefepime IV. We will admit patient for further medical management. Hospital course 01/15 This is a 54-year-old female with past medical history of diabetes, hypertension, hyperlipidemia and morbid obesity who presents to the ER for complaints of left lower extremity cellulitis which started over a month the patient is taking Bactrim x 12 days but no improvement so patient is being referred to the ED for evaluation.Patient states her left leg just get swollen, inflamed and painful and has 2 blisters that are still intact.Patient denies trauma,insect bites and no fall injury.Patient reports she was seen by her PCP and was advised to come for a possible IV antibiotic.Patient reports 4/10 pain level on the site.Patient reports having fever and chills today but did not check temperature. Latest vital signs temperature 99.7, heart rate 116, blood pressure 144/63 saturation 95% on room air. WBC 10, neutrophils 87, hemoglobin 13, hematocrit 41, platelet count 293. Sodium 132, chloride 98, BUN 22, glucose 366 lactic acid 2.2-1.4 troponin 27 BNP 10. Urinalysis remarkable for glucose more than 1000, ketones five, urine RBC 6-10, urine WBC 2-5. Chest x-ray result is unremarkable. Venous Doppler of the left lower extremity result revealed no DVT . While in the ER patient received 1 L NS bolus, vancomycin IV and cefepime IV. We will admit patient for further medical management. 01/16 patient was seen by nurse practitioner and physician during rounding. chest x-ray is negative. Venous Doppler negative for DVT. Blood cultures pending. Infectious Disease is pending to see patient, continues to be on cefepime and vancomycin. Patient will receive 2 g of magnesium for magnesium of 1.5. We will continue to monitor patient in the meantime. A.m. labs 01/17 patient was seen by nurse practitioner and physician during rounding in room 419. Patient is pending blood culture and wound culture. As per ID he was able to pop the blister of the left ankle and culture was sent to the lab. Venous Doppler negative. Chest x-ray negative. Continue cefepime and vancomycin. UA negative. We will continue to monitor patient in the meantime. A.m. labs. 01/18 patient was seen by ATM MANAGER and physician. Final blood in ankle culture still pending. Continue antibiotics vancomycin and cefepime as prescribed by ID. H&H stable. WBC 8.6. Patient will receive 2 g of magnesium for magnesium 1.6. Venous Doppler negative for DVT no superficial thrombophlebitis in the left lower extremity. We will continue to monitor patient in the meantime. A.m. labs] 01/19 patient was seen by ATM MANAGER and physician. Left ankle fracture positive for staphylococcus aureus. Continue iv antibiotics, follow ID recommendations.Venous Doppler negative for DVT no superficial thrombophlebitis in the left lower extremity. We will continue to monitor patient in the meantime. A.m. labs 01/20 patient is seen and examined at bedside, discussed with case management, patient accepted at [facility] for IV antibiotics per ID recommendations. [employer] Attorney(s): Infectious disease Assessment/Plan: Final diagnosis Left lower extremity cellulitis POA Morbid obesity POA Hypertension POA Hyperlipidemia POA Uncontrolled diabetes POA Hyponatremia due to hyperglycemia POA Discharge Instructions: The patient to follow up with the PCP as an outpatient, as well as [facility]. Return to the hospital if condition changes. Patient agreed and understood the information provided. Home Medications: Active Scripts Tramadol Hcl (Tramadol HCl) 50 Mg Tablet, 25 MG PO Q6H PRN for MODERATE PAIN (4- 6) for 7 Days, #28 TAB 0 Refills Prov:STEPHAN LUJAN MD 01/20/25 Mupirocin (Mupirocin Ointment) 2 % Oint, 0 APPL TP BID for 14 Days, #1 APPL 1 Refill Apply topical daily to affected area Prov:STEPHAN LUJAN MD 01/20/25 Reported Medications Rosuvastatin Calcium (Rosuvastatin Calcium) 10 Mg Tablet, 10 MG PO HS, TAB 01/17/25 Lisinopril (Lisinopril) 10 Mg Tablet, 10 MG PO DAILY, TAB 01/17/25 Carvedilol (Carvedilol) 3.125 Mg Tablet, 3.125 MG PO BID, TAB 01/17/25 Montelukast Sodium (Montelukast Sodium) 10 Mg Tablet, 10 MG PO DAILYDINNER, TAB 01/17/25 Metformin HCl (Metformin HCl) 1,000 Mg Tablet, 1000 MG PO BID, TAB 01/17/25 Time spent arranging discharge: 31-60 minutes STEPHAN LUJAN MD Jan 21, 2025 08:35
== END 2025-01-20 08:55 | disposition home or self-care (01) | DRG 603 ==
LOC: EDH 16:47 → EDHIP 20:57 → 4CH 23:50
PROVIDERS: ADMIT Hospitalist; ATTEND Hospitalist
DX: L03.116 Cellulitis of left lower limb (principal); E87.1 Hypo-osmolality and hyponatremia; I87.312 Chronic venous hypertension (idiopathic) with ulcer of left lower extremity; Z68.42 Body mass index [BMI] 45.0-49.9, adult; L97.222 Non-pressure chronic ulcer of left calf with fat layer exposed; E66.01 Morbid (severe) obesity due to excess calories; I10 Essential (primary) hypertension; E11.65 Type 2 diabetes mellitus with hyperglycemia; E78.5 Hyperlipidemia, unspecified; L02.416 Cutaneous abscess of left lower limb; A49.01 Methicillin susceptible Staphylococcus aureus infection, unspecified site; E78.00 Pure hypercholesterolemia, unspecified; Z78.9 Other specified health status; Z83.3 Family history of diabetes mellitus; S82.892A Other fracture of left lower leg, initial encounter for closed fracture; X58.XXXA Exposure to other specified factors, initial encounter; Y93.89 Activity, other specified; Y92.89 Other specified places as the place of occurrence of the external cause; Y99.8 Other external cause status; Z79.899 Other long term (current) drug therapy
CPT/HCPCS: 36415; 36569; 71045; 80048; 80053; 80076; 80202; 81001; 82010; 82150; 82550; 82948; 83605; 83735; 83880; 84145; 84484; 85025; 85610; 85651; 85730; 87040; 87070; 87086; 87186; 93971; 96361; 96374; 99285; C1894; G0378; J0692; J1815; J3373; J3475; J7030; C1751; J3370